=== PATIENT | female | born 1980 | race Caucasian/White ===

== ENCOUNTER 2016-11-21 16:13 | Emergency (ER) | payer OTHER ==
[~2016-11-21] VITALS: Ht 167.6 cm; Wt 67.6 kg
[~2016-11-21 16:13] MED LIST: BUPRTAB51 PO; DOXY100C76 PO; LEVO175T3 PO; OXYC1TAB3 PO
[2016-11-21 16:14] VITALS: TEMP 37.1; Ht 167.6 cm; Wt 67.6 kg
[2016-11-21] MEDS ORDERED: KETOROLAC TROMETHAMINE 60 MG/2 ML VIAL IM STA (16:33)
[2016-11-21] MEDS ORDERED: KETOROLAC TROMETHAMINE 30 MG/ML VIAL ONE (16:38)
[2016-11-21] MEDS ORDERED: QUET1TAB32 PO (16:39)
[2016-11-21 17:08] LABS: BASO % 0.3 %; BASO ABS # 0.03 K/uL (0-0.2); COMPLETE YES; EOS % 1.1 %; HEMATOCRIT 40.3 % (37-47); IG% 0.3 %; LYMPH % 28.3 %; LYMPH ABS # 2.88 K/uL (1.2-3.4); MEAN CELL VOLUME 89.6 fL (80-100); MEAN CORPUSCULAR HEMOGLOBIN 30.4 pg (25-34); MEAN PLATELET VOLUME 9.3 fL (7.4-10.4); MONO % 5.6 %; NEUT % 64.4 %; PLATELET COUNT 315 K/uL (130-400); WHITE BLOOD COUNT 10.17 K/uL (4.8-10.8)
[2016-11-21 17:29] LABS: BUN/CREATININE RATIO 9.5 (10-20); CALCIUM 8.9 mg/dl (8.5-10.1); POTASSIUM 3.6 mmol/L (3.5-5.1)
--- NOTE | 2016-11-21 17:30 | DIAGNOSTIC IMAGING REPORT ---
CT SCAN OF THE CERVICAL SPINE CLINICAL HISTORY: Neck pain and right cervical radiculopathy. COMPARISON STUDY: Radiograph of the cervical spine dated 02/24/2016. TECHNIQUE: CT scan of the cervical spine is performed from the skull base to the upper thoracic spine. Images are reviewed in the axial, sagittal, and coronal planes. IV contrast was not administered for this examination. CT DOSE: 234.34 mGy.cm FINDINGS: Skeletal structures: The skeletal structures are well mineralized. There is no evidence of fracture or subluxation involving the cervical spine. Vertebral body height and alignment are maintained. There is straightening of cervical lordosis with mild reversal centered at C4-C5. The odontoid process and lateral masses are intact. The atlantoaxial articulation is preserved. The spinous processes appear intact. Intervertebral discs: The disc spaces are well maintained. Posterior disc bulge is suggested at C5-C6. Central canal: Grossly patent. Soft tissues: The prevertebral and paraspinous soft tissues are within normal limits. The thyroid gland appears diminutive. Calvarium: The visualized calvarium at the skull base appears intact. Brain parenchyma: Partially visualized brain parenchyma the skull base is within normal limits. Sinuses and mastoids: The visualized paranasal sinuses are clear. The mastoid air cells are well pneumatized. Lung apices: Clear as visualized. IMPRESSION: 1. There is no evidence of fracture or subluxation involving the cervical spine. 2. Posterior disc bulge is suggested at C5-C6. Electronically signed by: Jh Norris M.D. 11/21/2016 5:27 PM Dictated Date/Time: 11/21/2016 5:25 PM
--- NOTE | 2016-11-21 18:40 | DIAGNOSTIC IMAGING REPORT ---
TWO VIEW CHEST CLINICAL HISTORY: Right-sided chest pain. FINDINGS: PA and lateral chest radiographs are compared to study dated 10/22/2016 and correlated with chest CT dated 10/20/2016. The cardiomediastinal silhouette is unremarkable. The lungs and pleural spaces are clear. There is no pneumothorax. The bony thorax appears intact. IMPRESSION: No active disease in the chest. Electronically signed by: Jh Norris M.D. 11/21/2016 6:38 PM Dictated Date/Time: 11/21/2016 6:37 PM
[2016-11-21] MEDS ORDERED: METHYLPREDNISOLONE 125 MG VIAL IV STA (18:57)
[2016-11-21] MEDS ORDERED: PRED50TA PO (19:16)
--- NOTE | 2016-11-21 19:21 | EMERGENCY ROOM VISIT NOTE ---
History Report prepared by Codiibhema: Ankita Martin Under the Supervision of: Dr. Deep Pepe D.O. First contact with patient: 16:17 Chief Complaint: OTHER COMPLAINT Stated Complaint: RT SIDE PAIN - SHOULDER DOWN THROUGH RIBS History of Present Illness The patient is a 36 year old female who presents to the Emergency Room with complaints of worsening right sided rib pain for the past several weeks. She rates her discomfort as a 7/10 and states the pain feels sharp, "like a pinched nerve". Moving her head worsens her pain. She reports she experienced pneumonia recently and tore muscles in both sides of her chest, near her ribs. She was treated with steroids for the pneumonia but denies any other recent steroid use. Recently, she has started experiencing right sided shoulder pain that also radiates into her rib area. She notes the fingers in her right hand will feel numb and tingly intermittently when the pain worsens when she turns her head to the right. The patient denies any history of cancer or IV drug use. The patient also denies any headache, change in vision, fevers, chest pain, shortness of breath, nausea, vomiting, diarrhea, pain with urination, and melena. 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 A total of 10 systems reviewed and were otherwise negative. Past Medical & Surgical Medical Problems: (1) Abdominal pain (2) Abdominal pain, left lower quadrant (3) Acute Pancreatitis, Unspecified (4) Contusion of hand, left (5) Hiatal hernia (6) Hypothyroidism (7) Hypothyroidism, Unspecified (8) Injury of right knee (9) Joint pain (10) Lower extremity edema (11) Major Depressive Disorder, Single Episode, Unspecified (12) Nicotine Dependence, Cigarettes, Uncomplicated (13) Ovarian cyst Surgical Problems: (1) History of appendectomy (2) History of back surgery Family History Cancer Diabetes mellitus FHx: gallbladder disease Heart disease Hypertension Kidney disease Kidney stones Lung disease Seizures Social History Smoking Status: Current Some Day Smoker Alcohol Use: none Drug Use: none Marital Status: in relationship Housing Status: lives with family Occupation Status: unemployed Current/Historical Medications Scheduled Bupropion (Wellbutrin-Xl), 300 MG PO DAILY Citalopram Hydrobromide (Celexa), 40 MG PO HS Levothyroxine Sodium (Levothyroxine Sodium), 175 MCG PO DAILY Prednisone (Prednisone), 50 MG PO DAILY Quetiapine Fumarate (Seroquel), 150 MG PO HS Scheduled PRN Albuterol (Proventil Hfa), 2 PUFFS INH Q4 PRN for SOB/Wheezing Allergies Coded Allergies: Fentanyl (Unverified Allergy, Severe, THROAT SWELLING, 10/20/16) Physical Exam Vital Signs Date Time Temp Pulse Resp B/P Pulse Ox O2 Delivery O2 Flow Rate FiO2 11/21/16 19:34 87 16 117/80 100 11/21/16 16:14 37.1 91 16 113/81 100 Room Air Physical Exam GENERAL: Patient is sitting up in bed, alert, disheveled appearing, well nourished, no distress, non-toxic EYE EXAM: normal conjunctiva OROPHARYNX: no exudate, no erythema, lips, buccal mucosa, and tongue normal and mucous membranes are moist NECK: Acute reproducible tenderness in the right paraspinal cervical region, tracking through the trapezius, into the shoulder. LUNGS: Clear to auscultation. Normal chest wall mechanics HEART: no murmurs, S1 normal and S2 normal CHEST: Acute reproducible tenderness on the right axilla. ABDOMEN: abdomen soft, non-tender, normo-active bowel sounds, no masses, no rebound or guarding. BACK: Back is symmetrical on inspection and there is no deformity, no midline tenderness, no CVA tenderness. SKIN: no rashes and no bruising UPPER EXTREMITIES: upper extremities are grossly normal. Flexion and extension of the shoulder, elbow, wrist and grasp 5/5, radial pulses 2/4, gross sensation intact, abduction of digits intact. LOWER EXTREMITIES: No pitting edema. NEURO EXAM: Normal sensorium, cranial nerves II-XII grossly intact, normal speech, no gross weakness of legs. Gross sensation intact. Medical Decision & Procedures ER Provider Diagnostic Interpretation: This CT scan was reviewed and interpreted by the radiologist and reviewed by myself. CT SCAN OF THE CERVICAL SPINE IMPRESSION: 1. There is no evidence of fracture or subluxation involving the cervical spine. 2. Posterior disc bulge is suggested at C5-C6. Electronically signed by: Jh Norris M.D. 11/21/2016 5:27 PM This X-Ray was reviewed and interpreted by myself and the radiologist. TWO VIEW CHEST IMPRESSION: No active disease in the chest. Electronically signed by: Jh Norris M.D. 11/21/2016 6:38 PM Laboratory Results 11/21/16 16:55 Red Blood Count 4.50, Mean Corpuscular Volume 89.6, Mean Corpuscular Hemoglobin 30.4, Mean Corpuscular Hemoglobin Concent 34.0, Mean Platelet Volume 9.3, Neutrophils (%) (Auto) 64.4, Lymphocytes (%) (Auto) 28.3, Monocytes (%) (Auto) 5.6, Eosinophils (%) (Auto) 1.1, Basophils (%) (Auto) 0.3, Neutrophils # (Auto) 6.55, Lymphocytes # (Auto) 2.88, Monocytes # (Auto) 0.57, Eosinophils # (Auto) 0.11, Basophils # (Auto) 0.03 11/21/16 16:55 Test 11/21/16 16:55 White Blood Count 10.17 K/uL (4.8-10.8) Red Blood Count 4.50 M/uL (4.2-5.4) Hemoglobin 13.7 g/dL (12.0-16.0) Hematocrit 40.3 % (37-47) Mean Corpuscular Volume 89.6 fL (80-100) Mean Corpuscular Hemoglobin 30.4 pg (25-34) Mean Corpuscular Hemoglobin Concent 34.0 g/dl (32-36) Platelet Count 315 K/uL (130-400) Mean Platelet Volume 9.3 fL (7.4-10.4) Neutrophils (%) (Auto) 64.4 % Lymphocytes (%) (Auto) 28.3 % Monocytes (%) (Auto) 5.6 % Eosinophils (%) (Auto) 1.1 % Basophils (%) (Auto) 0.3 % Neutrophils # (Auto) 6.55 K/uL (1.4-6.5) Lymphocytes # (Auto) 2.88 K/uL (1.2-3.4) Monocytes # (Auto) 0.57 K/uL (0.11-0.59) Eosinophils # (Auto) 0.11 K/uL (0-0.5) Basophils # (Auto) 0.03 K/uL (0-0.2) RDW Standard Deviation 47.0 fL (36.4-46.3) RDW Coefficient of Variation 14.3 % (11.5-14.5) Immature Granulocyte % (Auto) 0.3 % Immature Granulocyte # (Auto) 0.03 K/uL (0.00-0.02) D-Dimer 330 ug/L FEU (0-500) Anion Gap 8.0 mmol/L (3-11) Est Creatinine Clear Calc Drug Dose 72.8 ml/min Estimated GFR () 83.9 Estimated GFR (Non- 72.4 BUN/Creatinine Ratio 9.5 (10-20) Calcium Level 8.9 mg/dl (8.5-10.1) Laboratory results per my review. Medications Administered Medications (Trade) Dose Ordered Sig/Lulu Route Start Time Stop Time Status Last Admin Dose Admin Ketorolac Tromethamine (Toradol Inj) 60 mg NOW STAT IM 11/21/16 16:33 11/21/16 16:36 DC 11/21/16 17:41 60 MG Prednisone (PredniSONE TAB) 10 mg STK-MED ONCE .ROUTE 11/21/16 19:10 11/21/16 19:11 DC 11/21/16 19:13 10 MG Prednisone (PredniSONE TAB) 40 mg STK-MED ONCE .ROUTE 11/21/16 19:10 11/21/16 19:11 DC 11/21/16 19:13 40 MG ED Course ED COURSE: Vital signs were reviewed and showed normal vital signs. The patients medical record was reviewed The above diagnostic studies were performed and reviewed. ED treatments and interventions as stated above. 1621: The patient was evaluated in room A4. A complete history and physical examination was performed. 1633: Toradol 60 mg IM. 1744: I reevaluated the patient. She is on the way to X-Ray. 1856: Solu-Medrol 125 mg IV. 1909: Prednisone 50 mg PO. 1914: Upon reevaluation, the patient is feeling much better. I discussed my findings with the patient and she understands and agrees with the treatment plan. Based on the patients age, coexisting illnesses, exam and lab findings the decision to treat as an outpatient was made. The patient remained stable while under my care. The patient appeared well at the time of discharge. Medical Decision Etiologies such as fracture, dislocation, neurovascular compromise, compartment syndrome, soft tissue injury, as well as others were entertained. Patient is a 36-year-old female who presents the ER for right sided neck pain that radiates down right arm associated with intermittent tingling in her digits. She has no numbness now. She notes that this is been present for the past month. She does also have right-sided chest wall tenderness. Patient has no other complaints at this time. Denies chest pain or shortness of breath. D- dimer was negative. CBC and BMP were unremarkable. Chest x-ray shows no obvious fractures or infiltrate. CT of her neck shows likely disc protrusion but no fracture. Based on her symptoms I do believe that this is a cervical radiculopathy. She did have improvement with Toradol which was given IM. She is also given oral steroids and discharged follow up with her primary care doctor. Stressed the importance that if she has any weakness or worsening numbness that should return to the ER. Discussed with Pt concerning signs and symptoms to watch out for. Pt was instructed to follow up with their PCP and discussed with the patient their option to return to the ED at anytime for persistent or worsening symptoms. The appropriate anticipatory guidance and out- patient management, including indications for return to the emergency department , were explained at length to the patient and understood. Impression Primary Impression: Cervical radiculopathy Additional Impression: Right-sided chest wall pain Scribe Attestation The scribe's documentation has been prepared under my direction and personally reviewed by me in its entirety. I confirm that the note above accurately reflects all work, treatment, procedures, and medical decision making performed by me. Departure Information Dispostion Home / Self-Care Prescriptions Prednisone (Prednisone) 50 Mg Tab 50 MG PO DAILY for 5 Days, #5 TAB Prov: Deep Pepe, 11/21/16 Referrals No Doctor, Assigned (PCP) Patient Instructions ED Cervical Radiculopathy, My [facility] Additional Instructions Please follow up with your primary care doctor with in the next 24 hours. Any worsening of your symptoms, please return to the ED immediately. This includes fevers greater than 100.4, inability to turn her neck, weakness in her arm, complete numbness in the arm, or any other concerning signs or symptoms from your standpoint. Again you must follow with your primary care doctor for the cervical radiculopathy is likely causing the pain shooting down your right arm. Please take the steroids as prescribed. Please take Motrin Tylenol examination with steroids for pain. Problem Qualifiers
[2016-11-21 19:34] VITALS: BP 117/80; PULSE 87; O2SAT 100
[2016-11-21] MEDS ORDERED: ALBUAER INH (23:15)
[2016-11-21] MEDS ORDERED: CITA40TA12 PO (23:15)
== END 2016-11-21 19:35 | disposition home or self-care (01) ==
LOC: C.EDB 16:13 → C.EDA 19:35
DX: M54.12 Radiculopathy, cervical region (principal); R07.81 Pleurodynia; E03.9 Hypothyroidism, unspecified; F32.9 Major depressive disorder, single episode, unspecified; N83.209 Unspecified ovarian cyst, unspecified side; K86.1 Other chronic pancreatitis; F17.210 Nicotine dependence, cigarettes, uncomplicated; Z87.828 Personal history of other (healed) physical injury and trauma; Z98.890 Other specified postprocedural states; Z79.899 Other long term (current) drug therapy; Z88.8 Allergy status to other drugs, medicaments and biological substances; Z80.9 Family history of malignant neoplasm, unspecified; Z83.3 Family history of diabetes mellitus; Z82.49 Family history of ischemic heart disease and other diseases of the circulatory system; Z84.1 Family history of disorders of kidney and ureter; Z82.0 Family history of epilepsy and other diseases of the nervous system

== ENCOUNTER 2016-12-11 18:00 | Emergency (ER) | payer OTHER ==
[~2016-12-11] VITALS: Ht 167.6 cm; Wt 68.4 kg
[~2016-12-11 18:00] MED LIST changes: +ALBUAER INH; +CITA40TA12 PO; -DOXY100C76 PO; -OXYC1TAB3 PO; +QUET1TAB32 PO
[2016-12-11 18:08] VITALS: TEMP 36.8; Ht 167.6 cm; Wt 68.4 kg
--- NOTE | 2016-12-11 18:36 | DIAGNOSTIC IMAGING REPORT ---
RIGHT HAND 3 VIEWS HISTORY: Right fifth finger pain. COMPARISON: None. FINDINGS: There is a cortical plate and screws within the distal ulna. Soft tissue swelling at the distal right fifth finger. There is a fracture at the dorsal base of the distal phalanx of the right fifth finger which demonstrates 1 mm of distraction. No dislocation. Soft tissues are unremarkable. No radiopaque foreign bodies. IMPRESSION: Small slightly distracted fracture at the dorsal base of the distal phalanx of the right fifth finger. Electronically signed by: Johny Alonzo M.D. 12/11/2016 6:35 PM Dictated Date/Time: 12/11/2016 6:34 PM
[2016-12-11] MEDS ORDERED: HYDR-5688 PO (18:57)
[2016-12-11 19:21] VITALS: BP 107/75; PULSE 96; O2SAT 99
--- NOTE | 2016-12-12 14:53 | EMERGENCY ROOM VISIT NOTE ---
ED Visit Note First contact with patient: 18:13 Chief Complaint: Right little finger pain. History of Present Illness: Ms. Richter is a 36-year-old white female who ambulates into the ED complaining of right little finger pain at the DIP joint. Historically patient reports she initially injured it approximately 2 weeks ago. She was seen at [facility] ED and was told she had a fracture of the distal phalanx but was told the fracture appeared old. She was placed in the splint and given narcotics for pain control. She reports she stayed in the splint for approximately one week and was feeling better and took her splint off. She reports last night she was lifting up a laundry basket and reinjured her finger when somehow all the weight of the basket balanced on the little finger. Since that time she was noted increasing swelling over the DIP joint and increasing pain. Currently she describes her pain as a combination of sharp and throbbing. She places her discomfort over the DIP joint primarily over the posterior aspect. She rates her discomfort 6/10. Her pain is nonradiating. Her pain worsens with extension of the DIP joint, flexion of the DIP joint and palpation. She has not identified any alleviating factors related to the pain. She reports she has not taken a medication for pain prior to arrival at the hospital. Associated with her pain she reports paresthesias of the distal phalanx of the finger. Review of Systems: As noted above in history of present illness. Past Medical History: Graves' disease, asthma, bronchitis, pneumonia, status post unspecified back surgery, hernia repair, appendectomy, section and unspecified right arm surgery. Current Medications: Celexa, albuterol, Seroquel, Wellbutrin, levothyroxine. Allergies to Medications: Fentanyl. Social History: Patient is not employed; she feels safe in her home environment ; she admits to tobacco use and denies alcohol use. Physical Examination: Vital Signs: Date Time Temp Pulse Resp B/P Pulse Ox O2 Delivery O2 Flow Rate FiO2 12/11/16 19:21 96 16 107/75 99 12/11/16 18:08 36.8 94 17 109/75 97 Room Air GENERAL: 36-year-old female in moderate distress due to pain, nontoxic-appearing , afebrile and hemodynamically stable. NEUROLOGICAL: Awake, alert and oriented to person, place and time. Answering questions appropriately and following commands. SKIN: Warm, dry and pink. No soft tissue trauma noted. RIGHT HAND: No gross bony deformity. No tenderness over the metacarpals, carpals, MCP and PIP joints. Over the fifth MCP joint patient has mild erythema surrounding the joint and edema. There is moderate tenderness throughout the joint. I do not appreciate any bony deformity or crepitus. She has difficulty going from a flexed to a completely extended position at the DIP joint due to pain and swelling. She was not able to distinguish light sensations through the dermatomes of the distal phalanx. Skin was warm and pink and capillary refill was brisk. She did have full range of motion in flexion and extension of the PIP and MCP joint of the little finger. ED Course: Patient is assessed as noted above. Right Hand X-Rays: Were read by myself and the radiologist showing a small slightly displaced fracture at the dorsal base of the distal phalanx of the little finger. Patient was offered medications and refused. Patient was placed in a metal finger splint. Patient was educated about tonight's findings and instructed on her treatment plan; she verbalizes understanding and agreement with this plan. Clinical Impression: Fractured right hand fifth distal phalanx. Questionable tendon injury. Disposition: Patient discharged home in stable condition accompanied by her mother; prior to departure she was reassessed and subjectively reported she was feeling worse. Plan: Comfort measures including rest, ice, elevation, splint use and a sliding pain scale of ibuprofen, acetaminophen and [place] were discussed with the patient; appropriate narcotic prescriptions were discussed with the patient. Patient was encouraged to follow-up at orthopedics for definitive care and treatment. Patient was encouraged return ED for worsening/uncontrolled pain, uncontrolled swelling or any new/concerning symptoms.
== END 2016-12-11 19:22 | disposition home or self-care (01) ==
LOC: C.EDB 18:01 → C.EDD 19:22
DX: S62.636A Displaced fracture of distal phalanx of right little finger, initial encounter for closed fracture (principal); X50.0XXA Overexertion from strenuous movement or load, initial encounter; Y93.E2 Activity, laundry; E05.00 Thyrotoxicosis with diffuse goiter without thyrotoxic crisis or storm; J45.909 Unspecified asthma, uncomplicated; F17.200 Nicotine dependence, unspecified, uncomplicated

== ENCOUNTER 2017-01-15 10:48 | Emergency (ER) | payer OTHER ==
[~2017-01-15] VITALS: Ht 167.6 cm; Wt 66.8 kg
[~2017-01-15 10:48] MED LIST changes: +HYDR-5688 PO
[2017-01-15 10:53] VITALS: TEMP 36.7; Ht 167.6 cm; Wt 66.8 kg
[2017-01-15] MEDS ORDERED: SODIUM CHLORIDE 0.9% 1000ML 1,000 ML IV STA (11:34)
--- NOTE | 2017-01-15 11:43 | EMERGENCY ROOM VISIT NOTE ---
History First contact with patient: 11:15 Chief Complaint: RECTAL BLEEDING Stated Complaint: RECTAL BLEEDING Nursing Triage Summary: bright red rectal bleeding started on thursday. I have been passing clots. having rectal pain. hx of hemorrhoids History of Present Illness The patient is a 36 year old female who presents to the Emergency Room via private vehicle accompanied by mother with complaints of "rectal bleeding". The patient states that for the past year she has been experiencing rectal bleeding, with and without bowel movements. She notes that this occurred around the same time as her . She states that she also had a colonoscopy around 1.5 years ago and was normal. She states that this was performed in [place]. She notes that since that time she has had continued rectal bleeding, which has been off and on as well as diarrhea. She also notes that recently she began with a fullness sensation in the rectum, and notes that it feels as if someone is inserting a large object into that region. She also has lower abdominal cramping when trying to pass stool. She notes that she has a history of anemia. She was also told that she has "cancer cells and blood" and she was to see a lead military analyst. She was referred to them by her family doctor, Dr. Granado of [place]. She notes that the rectal bleeding will often be large amounts, with clots/chunks in the toilet bowl. She also notes that when she sits to urinate she will also passed blood from the rectum region. She notes that when she experiences a bowel movement she becomes sweaty. She also vomited twice Thursday night, in the Thursday but has not had any recently. She denies any fevers or chills. She denies any history of Crohn's or ulcers colitis. She does have an abdominal history of and appendectomy. She also has a history of external hemorrhoids. She notes that she has had these for quite some time, and this feels different. At this current time she rates her pain as minimal. Review of Systems A complete 10-point Review of Systems was discussed with the patient, with pertinent positives and negatives listed in the History of Present Illness. All remaining Review of Systems questions can be considered negative unless otherwise specified. Past Medical/Surgical History Medical Problems: (1) Abdominal pain (2) Abdominal pain, left lower quadrant (3) Acute Pancreatitis, Unspecified (4) Contusion of hand, left (5) Hiatal hernia (6) Hypothyroidism (7) Hypothyroidism, Unspecified (8) Injury of right knee (9) Joint pain (10) Lower extremity edema (11) Major Depressive Disorder, Single Episode, Unspecified (12) Nicotine Dependence, Cigarettes, Uncomplicated (13) Ovarian cyst Surgical Problems: (1) History of appendectomy (2) History of back surgery Family History Cancer Diabetes mellitus FHx: gallbladder disease Heart disease Hypertension Kidney disease Kidney stones Lung disease Seizures Social History Smoking Status: Current Every Day Smoker Alcohol Use: none Drug Use: none Marital Status: in relationship Housing Status: lives with family Occupation Status: unemployed Current/Historical Medications Scheduled Bupropion (Wellbutrin-Xl), 300 MG PO DAILY Citalopram Hydrobromide (Celexa), 40 MG PO HS Hydrocortisone Acetate (Rectal (Anusol-Hc), 1 SUPP OK BID Levothyroxine Sodium (Levothyroxine Sodium), 175 MCG PO DAILY Quetiapine Fumarate (Seroquel), 150 MG PO HS Scheduled PRN Albuterol (Proventil Hfa), 2 PUFFS INH Q4 PRN for SOB/Wheezing Oxycodone Ir (Roxicodone Ir), 1-2 TAB PO Q4H PRN for Pain Allergies Coded Allergies: Fentanyl (Unverified Allergy, Severe, THROAT SWELLING, 01/15/17) Physical Exam Vital Signs Date Time Temp Pulse Resp B/P Pulse Ox O2 Delivery O2 Flow Rate FiO2 01/15/17 16:23 77 16 111/59 96 Room Air 01/15/17 13:29 78 20 108/68 100 Room Air 01/15/17 10:53 36.7 98 18 107/65 97 Room Air Physical Exam VITAL SIGNS - Vital signs and nursing notes were reviewed. Patient is afebrile , normotensive, non-tachycardic and is saturating well on room air 97%. GENERAL -36-year-old female appearing her stated age who is in no acute distress. Patient is nontoxic in appearance. Communicates well with provider and answers questions appropriately. SKIN - Without rashes. No petechial rashes. HEAD - NC/AT. EYES - Sclera anicteric. Palpebral conjunctiva pink and moist with no injection noted. EARS - No deformities of external structures noted on gross examination bilaterally. NOSE - Midline and without cyanosis. No epistaxis or purulent drainage noted. NECK - Neck with FROM. Supple to palpation. No lymphadenopathy noted. No nuchal rigidity. No evidence of meningitis or encephalitis. LUNGS - Chest wall symmetric without accessory muscle use, intercostals retractions, or central cyanosis. Normal vesicular breath sounds CTA B/L. No wheezes, rales, or rhonchi appreciated. CARDIAC - RRR with S1/S2. No murmur, rubs, or gallops appreciated. ABDOMEN - Abdominal contour without pulsations or visible masses. BS normoactive all four quadrants. There is minimal generalized abdominal tenderness, more pronounced in the lower quadrants. No palpable masses, hepatosplenomegaly, or ascites noted. EXTREMITIES - No clubbing or peripheral cyanosis. No pretibial edema present. + 5/5 strength noted in UE/LE bilaterally. NEUROLOGIC - Cranial nerves II through XII grossly intact. Sensory intact to light touch throughout. PSYCH - Pt is very pleasant and interacts well with examiner. RECTAL: With patient consent, and female precipitator which was the patient's nurse , there are multiple external hemorrhoids noted, with out any evidence of bright red blood. Rectal exam was difficult for the patient as she was experiencing pain, and this was stopped. It was retried with copious amounts of lubricant, with same result, patient tolerated well. External hemorrhoids noted without evidence of internal abnormalities. Medical Decision & Procedures ER Provider Diagnostic Interpretation: ABDOMEN AND PELVIS CT WITH IV AND ORAL CONTRAST CT DOSE: 434.13 mGy.cm HISTORY: Pain Lower abdominal pain with defecation, blood in stool TECHNIQUE: Multiaxial CT images of the abdomen and pelvis were performed following the use of intravenous and oral contrast. COMPARISON STUDY: None. FINDINGS: Minimal basilar dependent atelectasis. Bowel pattern is nonobstructive. Small bilateral ovarian follicular cyst. Bladder is midline. Stable postoperative changes of the low lumbar spine. IMPRESSION: No acute process of the abdomen or pelvis. Small bilateral ovarian follicular cysts Electronically signed by: Jacob Contreras M.D. 01/15/2017 2:59 PM Dictated Date/Time: 01/15/2017 2:54 PM Laboratory Results 01/15/17 11:10 Red Blood Count 4.73, Mean Corpuscular Volume 90.3, Mean Corpuscular Hemoglobin 30.4, Mean Corpuscular Hemoglobin Concent 33.7, Mean Platelet Volume 9.4, Neutrophils (%) (Auto) 42.4, Lymphocytes (%) (Auto) 47.3, Monocytes (%) (Auto) 7.4, Eosinophils (%) (Auto) 1.9, Basophils (%) (Auto) 0.7, Neutrophils # (Auto) 3.07, Lymphocytes # (Auto) 3.43, Monocytes # (Auto) 0.54, Eosinophils # (Auto) 0.14, Basophils # (Auto) 0.05 01/15/17 11:10 Test 01/15/17 11:10 01/15/17 11:34 01/15/17 12:35 01/15/17 13:35 White Blood Count 7.25 K/uL (4.8-10.8) Red Blood Count 4.73 M/uL (4.2-5.4) Hemoglobin 14.4 g/dL (12.0-16.0) Hematocrit 42.7 % (37-47) Mean Corpuscular Volume 90.3 fL (80-100) Mean Corpuscular Hemoglobin 30.4 pg (25-34) Mean Corpuscular Hemoglobin Concent 33.7 g/dl (32-36) Platelet Count 385 K/uL (130-400) Mean Platelet Volume 9.4 fL (7.4-10.4) Neutrophils (%) (Auto) 42.4 % Lymphocytes (%) (Auto) 47.3 % Monocytes (%) (Auto) 7.4 % Eosinophils (%) (Auto) 1.9 % Basophils (%) (Auto) 0.7 % Neutrophils # (Auto) 3.07 K/uL (1.4-6.5) Lymphocytes # (Auto) 3.43 K/uL (1.2-3.4) Monocytes # (Auto) 0.54 K/uL (0.11-0.59) Eosinophils # (Auto) 0.14 K/uL (0-0.5) Basophils # (Auto) 0.05 K/uL (0-0.2) RDW Standard Deviation 44.5 fL (36.4-46.3) RDW Coefficient of Variation 13.3 % (11.5-14.5) Immature Granulocyte % (Auto) 0.3 % Immature Granulocyte # (Auto) 0.02 K/uL (0.00-0.02) Anion Gap 12.0 mmol/L (3-11) Est Creatinine Clear Calc Drug Dose 72.8 ml/min Estimated GFR () 83.9 Estimated GFR (Non- 72.4 BUN/Creatinine Ratio 7.3 (10-20) Calcium Level 8.9 mg/dl (8.5-10.1) Magnesium Level 2.5 mg/dl (1.8-2.4) Total Bilirubin 0.2 mg/dl (0.2-1) Aspartate Amino Transf (AST/SGOT) 18 U/L (15-37) Alanine Aminotransferase (ALT/SGPT) 28 U/L (12-78) Alkaline Phosphatase 107 U/L (45-117) Total Protein 7.7 gm/dl (6.4-8.2) Albumin 3.5 gm/dl (3.4-5.0) Globulin 4.2 gm/dl (2.5-4.0) Albumin/Globulin Ratio 0.8 (0.9-2) Thyroid Stimulating Hormone (TSH) 0.160 uIu/ml (0.300-4.500) Prothrombin Time 10.0 SECONDS (9.0-12.0) Prothromb Time International Ratio 0.9 (0.9-1.1) Activated Partial Thromboplast Time 34.8 SECONDS (21.0-31.0) Partial Thromboplastin Ratio 1.3 Urine Color YELLOW Urine Appearance CLEAR (CLEAR) Urine pH 8.0 (4.5-7.5) Urine Specific [place] 1.007 (1.000-1.030) Urine Protein NEG (NEG) Urine Glucose (UA) NEG (NEG) Urine Ketones NEG (NEG) Urine Occult Blood NEG (NEG) Urine Nitrite NEG (NEG) Urine Bilirubin NEG (NEG) Urine Urobilinogen NEG (NEG) Urine Leukocyte Esterase NEG (NEG) Medications Administered Medications (Trade) Dose Ordered Sig/Lulu Route Start Time Stop Time Status Last Admin Dose Admin Sodium Chloride (Nss 1000ml) 1,000 ml @ 999 mls/hr Q1H1M STAT IV 01/15/17 11:34 01/15/17 12:34 DC 01/15/17 12:05 999 MLS/HR Morphine Sulfate (MoRPHine SULFATE INJ) 4 mg NOW STAT IV 01/15/17 12:41 01/15/17 12:42 DC 01/15/17 12:46 4 MG Ondansetron HCl (Zofran Inj) 4 mg NOW STAT IV 01/15/17 12:41 01/15/17 12:42 DC 01/15/17 12:45 4 MG Medical Decision Patient was seen and evaluated as above. After obtaining a thorough history and physical examination the above workup was initiated. IV access was obtained. There was concern for intra-abdominal process as well as acute abdominal process. CT scan of the abdomen was ordered after discussing benefits versus risk with the patient. Her CBC did not reveal any leukocytosis or anemia. Coagulation studies revealed PTT elevated at 34.8, CMP reveals carbon dioxide elevated at 20, anion gap of 12, magnesium at 2.5, TSH at .160. Urine negative for evidence of infection. Urine negative for . CT of abdomen and pelvis essentially unremarkable. Rectal exam does reveal numerous external hemorrhoids. I do suspect the patient is likely experiencing pain secondary to this. She also has a potential diagnosis of IBS by her family doctor. Throughout her stay here she was given morphine and Zofran. The morphine was also repeated secondary to her level of pain. She was nontoxic in appearance. The patient will be discharged on a short term supply of OxyIR for her pain. She was educated upon the findings of today's lab work. She does appear to be ready for discharge. She is to follow-up with a soda maker as well as her family doctor. I do believe a colonoscopy near future be benefit. She was educated upon worrisome symptoms which to return, hypertension is pressured, and was discharged home in good condition. I suspect she is experiencing pain and rectal bleeding secondary to extensive external hemorrhoids. She will be treated with Anusol HC. As well as a short term supply pain medication. In evaluation treatment this patient following differential diagnoses were entertained: External hemorrhoids, internal hemorrhoids, colon cancer, ulcerative colitis, Crohn's, diverticulitis, mesenteric ischemia, IBS, among others. Impression Primary Impression: Rectal bleeding Additional Impression: Abdominal pain Departure Information Dispostion Home / Self-Care Condition GOOD Prescriptions Hydrocortisone Acetate (Rectal (ANUSOL-HC) 25 Mg Sup 1 SUPP OK BID for 7 Days, #14 SUPP Prov: Cruzito Fisher, MING 01/15/17 Oxycodone Ir (Roxicodone Ir) 5 Mg Tab 1-2 TAB PO Q4H Y for Pain, #15 TAB For Initial Treatment Prov: Cruzito Fisher PA-C 01/15/17 Referrals Abrahan Granado PA-C (PCP) Aggie Crowe M.D. Patient Instructions My [facility] Additional Instructions You have been treated in the Emergency Department your Abdominal Pain. Laboratory results and imaging studies have ruled out any emergent causes for your abdominal pain which would warrant admission or surgery. You've been prescribed suppositories which are to be used twice daily for 1 week for your hemorrhoids. You have been prescribed OxyIR to be used for pain control. This is a narcotic medication. You cannot drive or consume alcohol while on this medicine. This medicine should only be used for pain that cannot be controlled with over-the- counter pain medicines. For pain control, you can use the following [id number] medicines (if >12 yo): - Regular strength (325mg/tab) Tylenol (acetaminophen) 2 tabs every 4-6 hours as needed. Do not exceed 12 tablets in a 24 hour period. Avoid taking more than 4 grams (4000 mg) of Tylenol per day. This includes any other sources of acetaminophen you may take on a regular basis. Drink plenty of water and stay well hydrated. As with any trip to the Emergency Department, you should follow-up with your Primary Care Provider from today's visit. Return to the emergency department if your symptoms persist despite treatment plan outlined above or if the following symptoms occur: increased fevers, chills , worsening nausea/vomiting, blood in your stool or urine. Please call your family doctor, and the GI specialists listed above first thing tomorrow morning to schedule follow-up regarding today's visit. (Dr. Crowe) Problem Qualifiers Additional Impression: Abdominal pain Abdominal location: lower abdomen, unspecified Qualified Codes: R10.30 - Lower abdominal pain, unspecified
[2017-01-15] MEDS ORDERED: OPTIRAY 320 IV PRN (11:45)
[2017-01-15 11:51] LABS: BASO % 0.7 %; BASO ABS # 0.05 K/uL (0-0.2); COMPLETE YES; EOS % 1.9 %; HEMATOCRIT 42.7 % (37-47); IG% 0.3 %; LYMPH % 47.3 %; LYMPH ABS # 3.43 K/uL (1.2-3.4); MEAN CELL VOLUME 90.3 fL (80-100); MEAN CORPUSCULAR HEMOGLOBIN 30.4 pg (25-34); MEAN CORPUSCULAR HGB CONC 33.7 g/dl (32-36); MEAN PLATELET VOLUME 9.4 fL (7.4-10.4); MONO % 7.4 %; NEUT % 42.4 %; PLATELET COUNT 385 K/uL (130-400); RED BLOOD COUNT 4.73 M/uL (4.2-5.4); WHITE BLOOD COUNT 7.25 K/uL (4.8-10.8)
[2017-01-15 12:10] LABS: BUN/CREATININE RATIO 7.3 (10-20); CALCIUM 8.9 mg/dl (8.5-10.1); MAGNESIUM 2.5 mg/dl (1.8-2.4); POTASSIUM 3.9 mmol/L (3.5-5.1)
[2017-01-15 12:12] LABS: ALB/GLOB RATIO 0.8 (0.9-2)
[2017-01-15] MEDS ORDERED: ONDANSETRON INJ 2 MG/ML 2 ML VIAL IV STA (12:41)
[2017-01-15] MEDS ORDERED: MoRPHine SULFATE 4 MG/ML 1 ML CARP\\VIAL IV STA (12:41)
[2017-01-15 13:00] LABS: INR 0.9 (0.9-1.1); PARTIAL THROMBOPLASTIN RATIO 1.3
[2017-01-15 13:52] LABS: URINE APPEARANCE CLEAR (CLEAR); URINE BILIRUBIN NEG (NEG); URINE COLOR YELLOW; URINE NITRITE NEG (NEG); URINE SPECIFIC GRAVITY 1.007 (1.000-1.030); UROBILINOGEN NEG (NEG); ZZUR CULT IF INDIC CLEAN CATCH NO
[2017-01-15 13:55] LABS: MANUAL MICROSCOPIC REQUIRED? NO; REVIEW REQ? NO
--- NOTE | 2017-01-15 15:00 | DIAGNOSTIC IMAGING REPORT ---
ABDOMEN AND PELVIS CT WITH IV AND ORAL CONTRAST CT DOSE: 434.13 mGy.cm HISTORY: Pain Lower abdominal pain with defecation, blood in stool TECHNIQUE: Multiaxial CT images of the abdomen and pelvis were performed following the use of intravenous and oral contrast. COMPARISON STUDY: None. FINDINGS: Minimal basilar dependent atelectasis. Bowel pattern is nonobstructive. Small bilateral ovarian follicular cyst. Bladder is midline. Stable postoperative changes of the low lumbar spine. IMPRESSION: No acute process of the abdomen or pelvis. Small bilateral ovarian follicular cysts Electronically signed by: Jacob Contreras M.D. 01/15/2017 2:59 PM Dictated Date/Time: 01/15/2017 2:54 PM
[2017-01-15] MEDS ORDERED: HYDR25SU20 PR (16:13)
[2017-01-15] MEDS ORDERED: OXYC1TAB3 PO (16:13)
[2017-01-15 16:23] VITALS: BP 111/59; PULSE 77; O2SAT 96
== END 2017-01-15 16:25 | disposition home or self-care (01) ==
LOC: C.EDB 10:52 → C.EDC 16:25
DX: K62.5 Hemorrhage of anus and rectum (principal); R10.30 Lower abdominal pain, unspecified; E03.9 Hypothyroidism, unspecified; Z83.3 Family history of diabetes mellitus; Z82.49 Family history of ischemic heart disease and other diseases of the circulatory system; Z82.0 Family history of epilepsy and other diseases of the nervous system; F17.200 Nicotine dependence, unspecified, uncomplicated

== ENCOUNTER 2017-02-24 21:31 | Emergency (ER) | payer OTHER ==
[~2017-02-24] VITALS: Ht 167.6 cm; Wt 70.1 kg
[~2017-02-24 21:31] MED LIST changes: -HYDR-5688 PO; +OXYC1TAB3 PO
[2017-02-24 21:34] VITALS: TEMP 36.8; Ht 167.6 cm; Wt 70.1 kg
[2017-02-24 22:33] LABS: URINE APPEARANCE TURBID (CLEAR); URINE BILIRUBIN NEG (NEG); URINE COLOR ORANGE; URINE EPITHELIAL CELL AUTO >30 /lpf (0-5); URINE NITRITE NEG (NEG); UROBILINOGEN NEG (NEG); ZZUR CULT IF INDIC CLEAN CATCH YES
[2017-02-24 22:35] LABS: BASO % 0.3 %; BASO ABS # 0.02 K/uL (0-0.2); COMPLETE YES; EOS % 2.1 %; IG% 0.3 %; LYMPH ABS # 3.13 K/uL (1.2-3.4); MEAN CORPUSCULAR HEMOGLOBIN 31.6 pg (25-34); MEAN CORPUSCULAR HGB CONC 33.6 g/dl (32-36); MEAN PLATELET VOLUME 8.8 fL (7.4-10.4); MONO % 4.7 %; NEUT % 51.6 %; PLATELET COUNT 342 K/uL (130-400); RED BLOOD COUNT 4.15 M/uL (4.2-5.4); WHITE BLOOD COUNT 7.63 K/uL (4.8-10.8)
[2017-02-24 22:36] LABS: MANUAL MICROSCOPIC REQUIRED? NO; REVIEW REQ? NO
[2017-02-24 22:46] LABS: INR 0.9 (0.9-1.1); PARTIAL THROMBOPLASTIN RATIO 1.1; PROTHROMBIN TIME (PATIENT) 9.7 SECONDS (9.0-12.0)
[2017-02-24 22:51] LABS: BUN/CREATININE RATIO 7.1 (10-20); CREATININE 1.1 mg/dl (0.60-1.20); MAGNESIUM 2.3 mg/dl (1.8-2.4); POTASSIUM 3.7 mmol/L (3.5-5.1)
[2017-02-24 22:54] LABS: ALB/GLOB RATIO 0.9 (0.9-2)
--- NOTE | 2017-02-24 22:58 | DIAGNOSTIC IMAGING REPORT ---
CT SCAN OF THE BRAIN WITHOUT IV CONTRAST CLINICAL HISTORY: Fall. COMPARISON STUDY: No priors. TECHNIQUE: Unenhanced axial CT scan of the brain is performed from the vertex to the skull base. Automated dose control exposure was utilized. FINDINGS: Brain parenchyma: The brain parenchyma is normal in appearance. There is no hemorrhage, mass effect, or evidence of acute territorial ischemia by CT criteria. Dunbar-white matter is preserved. No extra-axial fluid collection is seen. Ventricles, sulci, cisterns: Normal in configuration. Intracranial vasculature: The visualized intracranial vasculature at the skull base is normal in appearance. Calvarium: There is no depressed calvarial fracture. Sinuses and mastoids: The visualized paranasal sinuses are clear. The mastoid air cells are well pneumatized. Orbits: The bony orbits are grossly intact. IMPRESSION: No acute intracranial abnormality. Electronically signed by: Jh Norris M.D. 02/24/2017 10:56 PM Dictated Date/Time: 02/24/2017 10:54 PM
[2017-02-24 22:59] LABS: CALCIUM 8.4 mg/dl (8.5-10.1)
--- NOTE | 2017-02-24 23:01 | DIAGNOSTIC IMAGING REPORT ---
CT SCAN OF THE CERVICAL SPINE CLINICAL HISTORY: Fall. Neck pain. COMPARISON STUDY: CT scan of cervical spine dated 11/21/2016. TECHNIQUE: CT scan of the cervical spine is performed from the skull base to the upper thoracic spine. Images are reviewed in the axial, sagittal, and coronal planes. IV contrast was not administered for this examination. CT DOSE: 859.44 mGy.cm FINDINGS: Skeletal structures: The skeletal structures are well mineralized. There is no evidence of fracture or subluxation involving the cervical spine. Vertebral body height and alignment are maintained. There is mild straightening of the cervical lordosis. The odontoid process and lateral masses are intact. The atlantoaxial articulation is preserved. The spinous processes appear intact. Intervertebral discs: The disc spaces are well maintained. Posterior disc bulge is again suggested at C5-C6. Central canal: Widely patent. Soft tissues: The prevertebral and paraspinous soft tissues are within normal limits. Calvarium: The visualized calvarium at the skull base appears intact. Brain parenchyma: Partially visualized brain parenchyma the skull base is within normal limits. Sinuses and mastoids: The visualized paranasal sinuses are clear. The mastoid air cells are well pneumatized. Lung apices: Tiny blebs are noted at the right apex. Lung parenchyma is otherwise clear as visualized. IMPRESSION: There is no evidence of fracture or subluxation involving the cervical spine. Electronically signed by: Jh Norris M.D. 02/24/2017 10:59 PM Dictated Date/Time: 02/24/2017 10:56 PM
[2017-02-24 23:08] LABS: BENZODIAZEPINE, URINE NEG (NEG); COCAINE,URINE NEG (NEG); PHENCYCLIDINE, URINE NEG (NEG)
--- NOTE | 2017-02-24 23:12 | DIAGNOSTIC IMAGING REPORT ---
CT SCAN OF THE LUMBAR SPINE WITHOUT IV CONTRAST CLINICAL HISTORY: Fall with low back pain. COMPARISON STUDY: Progressive lumbar spine dated 02/24/2016. TECHNIQUE: CT scan of the lumbar spine is performed from the lower thoracic spine to the sacrum. Images are reviewed in the axial, sagittal, and coronal planes. IV contrast was not administered for this examination. CT DOSE: 585.47 mGy.cm FINDINGS: The skeletal structures appear osteopenic. There is no evidence of fracture or malalignment. Vertebral body height is maintained throughout the lumbar spine. There are postoperative changes from laminectomy and posterior fusion seen from L4 to S1. Interpedicular screws are present at all levels. The orthopedic hardware appears intact. Again seen is 10 mm of anterolisthesis at L5-S1. The remaining spinous processes as well as the transverse processes appear intact. There is advanced degenerative disc space narrowing at L5-S1, with probable discectomy and near complete bony fusion at this level. The remaining disc spaces appear preserved. A tiny posterior disc osteophyte complex is noted at L4-L5. There is no evidence of large disc herniation. The central canal is clear as visualized. No lytic or blastic lesions are seen. The visualized sacrum and bony pelvis appear intact. Sclerotic change is noted in the sacroiliac joints. There is mild fatty atrophy of the paraspinous musculature. The partially imaged retroperitoneal structures are grossly normal but incompletely evaluated. Post appendectomy change is noted in the right lower quadrant. IMPRESSION: 1. There is no evidence of fracture or malalignment involving the lumbar spine. 2. Postoperative change as above. Electronically signed by: Jh Norris M.D. 02/24/2017 11:10 PM Dictated Date/Time: 02/24/2017 11:05 PM
[2017-02-24] MEDS ORDERED: VNTHFA/IN INH (23:35)
[2017-02-24] MEDS ORDERED: HYDR-3124 PO (23:38)
[2017-02-25] MEDS ORDERED: KETOROLAC TROMETHAMINE 30 MG/ML VIAL IV STA (00:10)
[2017-02-25] MEDS ORDERED: ONDANSETRON INJ 2 MG/ML 2 ML VIAL IV STA (00:10)
[2017-02-25 00:29] VITALS: BP 122/75; PULSE 72; O2SAT 99
--- NOTE | 2017-02-25 00:36 | EMERGENCY ROOM VISIT NOTE ---
History First contact with patient: 21:58 Chief Complaint: BACK PAIN Stated Complaint: BACK PAIN History of Present Illness The patient is a 36 year old female who presents to the Emergency Department by private vehicle for evaluation of her back pain and head pain. She reportedly fell ambulate down sips day. She reportedly slipped. She had no dizziness or lightheadedness prior to the fall. She has a history of lumbar surgeries. She has pain in her low back. She reports a mild headache. In addition, the patient is had vaginal bleeding over the last few days. She was seen in the [place] emergency Department last evening and had labs performed which were unremarkable. She had no other testing performed which is frustrated to the patient. The patient rates her current discomfort as an 8/10. She denies any blurry vision, double vision, neck pain, numbness/weakness to the extremities, chest pain, or abdominal pain. Review of Systems A complete 10-point Review of Systems was discussed with the patient, with pertinent positives and negatives listed in the History of Present Illness. All remaining Review of Systems questions can be considered negative unless otherwise specified. Past Medical/Surgical History Medical Problems: (1) Abdominal pain (2) Abdominal pain, left lower quadrant (3) Acute Pancreatitis, Unspecified (4) Contusion of hand, left (5) Hiatal hernia (6) Hypothyroidism (7) Hypothyroidism, Unspecified (8) Injury of right knee (9) Joint pain (10) Lower extremity edema (11) Major Depressive Disorder, Single Episode, Unspecified (12) Nicotine Dependence, Cigarettes, Uncomplicated (13) Ovarian cyst Surgical Problems: (1) History of appendectomy (2) History of back surgery Family History Cancer Diabetes mellitus FHx: gallbladder disease Heart disease Hypertension Kidney disease Kidney stones Lung disease Seizures Social History Smoking Status: Current Every Day Smoker Alcohol Use: none Drug Use: none Marital Status: in relationship Housing Status: lives with family Occupation Status: unemployed Current/Historical Medications Scheduled Bupropion (Wellbutrin-Xl), 300 MG PO DAILY Citalopram Hydrobromide (Celexa), 20 MG PO HS Levothyroxine Sodium (Levothyroxine Sodium), 175 MCG PO DAILY Quetiapine Fumarate (Seroquel), 100 MG PO HS Scheduled PRN Albuterol Hfa (Ventolin Hfa), 2 PUFFS INH Q4 PRN for SOB/Wheezing Hydroxyzine Hcl (Atarax), 25 MG PO DAILY PRN for Anxiety Allergies Coded Allergies: Fentanyl (Unverified Allergy, Severe, THROAT SWELLING, 02/24/17) Physical Exam Vital Signs Date Time Temp Pulse Resp B/P Pulse Ox O2 Delivery O2 Flow Rate FiO2 02/25/17 00:29 72 19 122/75 99 Room Air 02/24/17 21:34 36.8 93 19 110/71 96 Room Air Pain Rating (0-10): 3 Physical Exam VITAL SIGNS - Vital signs and nursing notes were reviewed. GENERAL - 36-year-old female appearing her stated age who is in no acute distress. Communicates well with provider and answers questions appropriately. HEAD - Normocephalic, Atraumatic. No Marrero's Sign or Raccoon's Eyes. No depressed skull fractures palpable. EYES - PERRL with EOMI bilaterally. Sclera anicteric. Palpebral conjunctiva pink and moist with no injection noted. EARS - No deformities of external structures noted on gross examination bilaterally. No pain elicited with palpation of the tragus bilaterally. External auditory canals without discharge or otorrhea. Tympanic membranes pearly dunbar without retraction or bulging. NOSE - Midline and without cyanosis. No epistaxis or purulent drainage noted. Septum midline without deviation or septal hematoma noted. MOUTH/OROPHARYNX - Without perioral cyanosis. Buccal mucosa pink and moist and without leukoplakia. Tongue midline with equal elevation of palate bilaterally. No tonsillar hypertrophy, erythema, or exudates noted. NECK - Neck with FROM. Supple to palpation. No lymphadenopathy noted. No nuchal rigidity. LUNGS - Chest wall symmetric without accessory muscle use, intercostals retractions, or central cyanosis. Normal vesicular breath sounds CTA B/L. No wheezes, rales, or rhonchi appreciated. CARDIAC - RRR with S1/S2. No murmur, rubs, or gallops appreciated. LUNGS - Chest wall symmetric without accessory muscle use, intercostals retractions, or central cyanosis. Normal vesicular breath sounds CTA B/L. No wheezes, rales, or rhonchi appreciated. CARDIAC - RRR with S1/S2. No murmur, rubs, or gallops appreciated. ABDOMEN - Abdominal contour flat\ and without pulsations or visible masses. Negative [place]'s or Corona Navas's Signs. BS normoactive all four quadrants. No tenderness to palpation appreciated throughout. No guarding Rebound Tenderness. Negative Rovsing's. Negative Abraham's. No palpable masses, hepatosplenomegaly, or ascites noted. EXTREMITIES - No clubbing or peripheral cyanosis. No pretibial edema present. +3 /5 radial and dorsalis pedis pulses palpated throughout. NEUROLOGIC - Cranial nerves II through XII grossly intact. Sensory intact to light touch throughout. Patellar reflexes +2/4. Patient able to perform rapid alternating movements appropriately. Negative Romberg and Pronator Drift. PSYCH - A&Ox3 and cooperates fully with examiner. Pt is very pleasant and interacts well with examiner. Medical Decision & Procedures ER Provider Diagnostic Interpretation: Radiological imaging and reports were reviewed by myself. Radiologist's Interpretation as follows: CT SCAN OF THE CERVICAL SPINE CLINICAL HISTORY: Fall. Neck pain. COMPARISON STUDY: CT scan of cervical spine dated 11/21/2016. TECHNIQUE: CT scan of the cervical spine is performed from the skull base to the upper thoracic spine. Images are reviewed in the axial, sagittal, and coronal planes. IV contrast was not administered for this examination. CT DOSE: 859.44 mGy.cm FINDINGS: Skeletal structures: The skeletal structures are well mineralized. There is no evidence of fracture or subluxation involving the cervical spine. Vertebral body height and alignment are maintained. There is mild straightening of the cervical lordosis. The odontoid process and lateral masses are intact. The atlantoaxial articulation is preserved. The spinous processes appear intact. Intervertebral discs: The disc spaces are well maintained. Posterior disc bulge is again suggested at C5-C6. Central canal: Widely patent. Soft tissues: The prevertebral and paraspinous soft tissues are within normal limits. Calvarium: The visualized calvarium at the skull base appears intact. Brain parenchyma: Partially visualized brain parenchyma the skull base is within normal limits. Sinuses and mastoids: The visualized paranasal sinuses are clear. The mastoid air cells are well pneumatized. Lung apices: Tiny blebs are noted at the right apex. Lung parenchyma is otherwise clear as visualized. IMPRESSION: There is no evidence of fracture or subluxation involving the cervical spine. CT SCAN OF THE BRAIN WITHOUT IV CONTRAST CLINICAL HISTORY: Fall. COMPARISON STUDY: No priors. TECHNIQUE: Unenhanced axial CT scan of the brain is performed from the vertex to the skull base. Automated dose control exposure was utilized. FINDINGS: Brain parenchyma: The brain parenchyma is normal in appearance. There is no hemorrhage, mass effect, or evidence of acute territorial ischemia by CT criteria. Dunbar-white matter is preserved. No extra-axial fluid collection is seen. Ventricles, sulci, cisterns: Normal in configuration. Intracranial vasculature: The visualized intracranial vasculature at the skull base is normal in appearance. Calvarium: There is no depressed calvarial fracture. Sinuses and mastoids: The visualized paranasal sinuses are clear. The mastoid air cells are well pneumatized. Orbits: The bony orbits are grossly intact. IMPRESSION: No acute intracranial abnormality. CT SCAN OF THE LUMBAR SPINE WITHOUT IV CONTRAST CLINICAL HISTORY: Fall with low back pain. COMPARISON STUDY: Progressive lumbar spine dated 02/24/2016. TECHNIQUE: CT scan of the lumbar spine is performed from the lower thoracic spine to the sacrum. Images are reviewed in the axial, sagittal, and coronal planes. IV contrast was not administered for this examination. CT DOSE: 585.47 mGy.cm FINDINGS: The skeletal structures appear osteopenic. There is no evidence of fracture or malalignment. Vertebral body height is maintained throughout the lumbar spine. There are postoperative changes from laminectomy and posterior fusion seen from L4 to S1. Interpedicular screws are present at all levels. The orthopedic hardware appears intact. Again seen is 10 mm of anterolisthesis at L5-S1. The remaining spinous processes as well as the transverse processes appear intact. There is advanced degenerative disc space narrowing at L5-S1, with probable discectomy and near complete bony fusion at this level. The remaining disc spaces appear preserved. A tiny posterior disc osteophyte complex is noted at L4-L5. There is no evidence of large disc herniation. The central canal is clear as visualized. No lytic or blastic lesions are seen. The visualized sacrum and bony pelvis appear intact. Sclerotic change is noted in the sacroiliac joints. There is mild fatty atrophy of the paraspinous musculature. The partially imaged retroperitoneal structures are grossly normal but incompletely evaluated. Post appendectomy change is noted in the right lower quadrant. IMPRESSION: 1. There is no evidence of fracture or malalignment involving the lumbar spine. 2. Postoperative change as above. Radiological imaging and reports were reviewed by myself. Radiologist's Interpretation per [facility] as follows: US PELVIC/ENDOVAG: The uterus is normal in size and without focal lesion. The endometrium is normal in thickness, measuring up to 0.5 cm. Right ovary measures 3.1 x 2.4 x 2.5 cm and contains several nonspecific echogenic foci and a 0.9 cm likely dominant follicle. Blood flow demonstrated in right ovary. Left ovary is obscured by bowel gas. No free fluid in the pelvis. Laboratory Results 02/24/17 22:24 Red Blood Count 4.15, Mean Corpuscular Volume 94.0, Mean Corpuscular Hemoglobin 31.6, Mean Corpuscular Hemoglobin Concent 33.6, Mean Platelet Volume 8.8, Neutrophils (%) (Auto) 51.6, Lymphocytes (%) (Auto) 41.0, Monocytes (%) (Auto) 4.7, Eosinophils (%) (Auto) 2.1, Basophils (%) (Auto) 0.3, Neutrophils # (Auto) 3.94, Lymphocytes # (Auto) 3.13, Monocytes # (Auto) 0.36, Eosinophils # (Auto) 0.16, Basophils # (Auto) 0.02 02/24/17 22:24 Test 02/24/17 22:20 02/24/17 22:24 Urine Color ORANGE Urine Appearance TURBID (CLEAR) Urine pH 7.0 (4.5-7.5) Urine Specific [place] 1.020 (1.000-1.030) Urine Protein 1+ (NEG) Urine Glucose (UA) NEG (NEG) Urine Ketones NEG (NEG) Urine Occult Blood 3+ (NEG) Urine Nitrite NEG (NEG) Urine Bilirubin NEG (NEG) Urine Urobilinogen NEG (NEG) Urine Leukocyte Esterase SMALL (NEG) Urine WBC (Auto) >30 /hpf (0-5) Urine RBC (Auto) >30 /hpf (0-4) Urine Hyaline Casts (Auto) 1-5 /lpf (0-5) Urine Epithelial Cells (Auto) >30 /lpf (0-5) Urine Bacteria (Auto) 2+ (NEG) Urine Test NEG (NEG) Urine Opiates Screen NEG (NEG) Urine Methadone, Qualitative NEG (NEG) Urine Barbiturates NEG (NEG) Urine Phencyclidine (PCP) Level NEG (NEG) Ur Amphetamine/Methamphetamine NEG (NEG) Urine MDE-amphetamine (MDEA) negative Ur Methylenedioxyamphetamine (MDA) negative MDMA (Ecstasy) Screen POS (NEG) Methylenedioxymethamphetamine (MDMA negative Urine Benzodiazepines Screen NEG (NEG) Urine Cocaine Metabolite NEG (NEG) Urine Marijuana (THC) NEG (NEG) White Blood Count 7.63 K/uL (4.8-10.8) Red Blood Count 4.15 M/uL (4.2-5.4) Hemoglobin 13.1 g/dL (12.0-16.0) Hematocrit 39.0 % (37-47) Mean Corpuscular Volume 94.0 fL (80-100) Mean Corpuscular Hemoglobin 31.6 pg (25-34) Mean Corpuscular Hemoglobin Concent 33.6 g/dl (32-36) Platelet Count 342 K/uL (130-400) Mean Platelet Volume 8.8 fL (7.4-10.4) Neutrophils (%) (Auto) 51.6 % Lymphocytes (%) (Auto) 41.0 % Monocytes (%) (Auto) 4.7 % Eosinophils (%) (Auto) 2.1 % Basophils (%) (Auto) 0.3 % Neutrophils # (Auto) 3.94 K/uL (1.4-6.5) Lymphocytes # (Auto) 3.13 K/uL (1.2-3.4) Monocytes # (Auto) 0.36 K/uL (0.11-0.59) Eosinophils # (Auto) 0.16 K/uL (0-0.5) Basophils # (Auto) 0.02 K/uL (0-0.2) RDW Standard Deviation 45.9 fL (36.4-46.3) RDW Coefficient of Variation 13.3 % (11.5-14.5) Immature Granulocyte % (Auto) 0.3 % Immature Granulocyte # (Auto) 0.02 K/uL (0.00-0.02) Prothrombin Time 9.7 SECONDS (9.0-12.0) Prothromb Time International Ratio 0.9 (0.9-1.1) Activated Partial Thromboplast Time 28.9 SECONDS (21.0-31.0) Partial Thromboplastin Ratio 1.1 Anion Gap 8.0 mmol/L (3-11) Est Creatinine Clear Calc Drug Dose 66.1 ml/min Estimated GFR () 74.8 Estimated GFR (Non- 64.5 BUN/Creatinine Ratio 7.1 (10-20) Calcium Level 8.4 mg/dl (8.5-10.1) Magnesium Level 2.3 mg/dl (1.8-2.4) Total Bilirubin 0.2 mg/dl (0.2-1) Aspartate Amino Transf (AST/SGOT) 15 U/L (15-37) Alanine Aminotransferase (ALT/SGPT) 21 U/L (12-78) Alkaline Phosphatase 92 U/L (45-117) Total Protein 7.0 gm/dl (6.4-8.2) Albumin 3.4 gm/dl (3.4-5.0) Globulin 3.6 gm/dl (2.5-4.0) Albumin/Globulin Ratio 0.9 (0.9-2) Date/Time Source Procedure Growth Status 02/24/17 22:20 Urine , Clean Catch Urine Culture - Final THREE TYPES OF ORGANSIMS PRESENT, ALL... Complete Medications Administered Medications (Trade) Dose Ordered Sig/Lulu Route Start Time Stop Time Status Last Admin Dose Admin Ketorolac Tromethamine (Toradol Inj) 30 mg NOW STAT IV 02/25/17 00:10 02/25/17 00:11 DC 02/25/17 00:17 30 MG Ondansetron HCl (Zofran Inj) 4 mg NOW STAT IV 02/25/17 00:10 02/25/17 00:11 DC 02/25/17 00:17 4 MG ED Course Patient was seen and evaluated by myself. CT of the head, cervical spine, lumbar spine were obtained. Pelvic ultrasound was obtained. Laboratory results demonstrate no acute leukocytosis, worrisome anemia, or bandemia. The patient has no significant electrode abnormalities. Imaging studies as above. The patient was reevaluated. She was treated with 30 mg Toradol intravenously for pain. She declines pelvic exam. The patient was encouraged to follow-up with her [facility] from today's visit. She was educated on worrisome symptoms for return visit to the emergency department. Patient discharged home afebrile and in good condition. Medical Decision Given the patient's presentation and stated complaints, I did elect to perform the above-mentioned workup. The patient presents today with ongoing symptoms of vaginal bleeding as well as a recent fall. Her imaging studies were otherwise unremarkable. She is not anemic. She is not hypotensive. The patient declines pelvic exam further evaluation. I'm not comfortable by the patient any further surgical or gynecological evaluation at this point. She was encouraged follow-up with her [facility] from today's visit. She was educated on worrisome symptoms for return visit to the emergency department. Patient discharged home afebrile and in good condition. In the evaluation and treatment of this patient, the following differential diagnoses were considered: Appendicitis, diverticulitis, diverticulosis, ovarian torsion, ruptured ovarian cyst, dyspareunia, amongst others. Impression Primary Impression: Vaginal bleeding Additional Impressions: Fall Head injury Departure Information Dispostion Home / Self-Care Condition GOOD Referrals Abrahan Granado PA-C (PCP) Patient Instructions My [facility] Additional Instructions Patient was seen in the emergency department today for vaginal bleeding and injury sustained after fall. Please follow-up with [facility] from today's visit. For pain control, you can use the following [id number] medicines (if >12 yo): - Regular strength (325mg/tab) Tylenol (acetaminophen) 2 tabs every 4-6 hours as needed. Do not exceed 12 tablets in a 24 hour period. Avoid taking more than 4 grams (4000 mg) of Tylenol per day. This includes any other sources of acetaminophen you may take on a regular basis. - Regular strength (200 mg/tab) Advil (ibuprofen) 1-2 tabs every 4-6 hours as needed. Do not exceed a dose of 3200 mg per day. Return for any changing or worsening symptoms. Problem Qualifiers Additional Impressions: Fall Encounter type: initial encounter Qualified Codes: W19.XXXA - Unspecified fall, initial encounter Head injury Encounter type: initial encounter Qualified Codes: S09.90XA - Unspecified injury of head, initial encounter
--- NOTE | 2017-02-25 06:42 | DIAGNOSTIC IMAGING REPORT ---
EXAMINATION: PELVIC ULTRASOUND (transabdominal and endovaginal scanning) CLINICAL HISTORY: vag bleeding COMPARISON STUDY: CT scan dated 01/15/2017 FINDINGS: The uterus measured 7.4 x 3.7 x 5.2 cm. There is an anterior scar. The endometrial stripe measured 5 mm. The right ovary measured 31 x 23 x 25 mm. The left ovary was not visualized There is no ultrasonographic evidence of ovarian torsion. It should be noted that ovarian torsion can be present with normal Doppler ultrasonographic findings. There was no evidence of pathologic free pelvic fluid. IMPRESSION: Nonvisualization of the left ovary. Otherwise unremarkable pelvic ultrasound. Electronically signed by: Kvng Graves M.D. 02/25/2017 6:40 AM Dictated Date/Time: 02/25/2017 6:38 AM
== END 2017-02-25 00:42 | disposition home or self-care (01) ==
LOC: C.EDB 21:32 → C.EDC 02-25 00:42
DX: S09.90XA Unspecified injury of head, initial encounter (principal); N93.9 Abnormal uterine and vaginal bleeding, unspecified; W01.0XXA Fall on same level from slipping, tripping and stumbling without subsequent striking against object, initial encounter; E03.9 Hypothyroidism, unspecified; F32.9 Major depressive disorder, single episode, unspecified; F17.210 Nicotine dependence, cigarettes, uncomplicated; Z80.9 Family history of malignant neoplasm, unspecified; Z83.3 Family history of diabetes mellitus; Z82.49 Family history of ischemic heart disease and other diseases of the circulatory system; Z82.0 Family history of epilepsy and other diseases of the nervous system; Z79.899 Other long term (current) drug therapy

== ENCOUNTER 2017-03-08 17:24 | Emergency (ER) | payer OTHER ==
[~2017-03-08] VITALS: Ht 167.6 cm; Wt 68.0 kg
[~2017-03-08 17:24] MED LIST changes: -ALBUAER INH; +HYDR-3124 PO; -OXYC1TAB3 PO; +VNTHFA/IN INH
[2017-03-08 17:27] VITALS: TEMP 36.8; Ht 167.6 cm; Wt 68.0 kg
--- NOTE | 2017-03-08 17:51 | DIAGNOSTIC IMAGING REPORT ---
LEFT HAND MIN 3 VIEWS ROUTINE CLINICAL HISTORY: Left hand pain following injury. COMPARISON: Left hand radiographs March 08, 2016. FINDINGS: Alignment of the left hand is anatomic. There is no acute fracture. Carpal bones are intact. IMPRESSION: No acute fracture or dislocation of the left hand. Electronically signed by: Suhail Bailey M.D. 03/08/2017 5:49 PM Dictated Date/Time: 03/08/2017 5:48 PM
[2017-03-08] MEDS ORDERED: NORCO 5/325MG HOME PACK PO ONE (18:00)
[2017-03-08] MEDS ORDERED: HYDR-5688 PO (18:03)
[2017-03-08 18:19] VITALS: BP 116/69; PULSE 104; O2SAT 97
--- NOTE | 2017-03-12 06:48 | EMERGENCY ROOM VISIT NOTE ---
ED Visit Note First contact with patient: 17:36 Chief Complaint: Left hand pain. History of Present Illness: Ms. Patel is a 36-year-old white female who ambulates into the ED complaining of left hand pain. Patient reports 2 days ago she was helping a friend load a washing machine onto a truck when the mold washer fell onto her left hand. She reports since that time she has been having pain primarily over the posterior aspect of the hand. Currently she describes her pain as a combination of sharp and throbbing. She rates her discomfort 8/10. Her pain is nonradiating. Her pain worsens with palpation of all the metacarpals and making a fist. She has not identified any alleviating factors related to the pain. She reports that she has been using [id number] medication with minimal relief of her discomfort. She denies any associated symptoms including elbow pain, forearm pain, finger pain, hand weakness/numbness/tingling. She also denies any previous significant injuries or surgeries to the hand. Review of Systems: As noted above in history of present illness. Past Medical History: Asthma, bronchitis, hypothyroidism, status post cholecystectomy. Current Medications: Celexa, Seroquel, Wellbutrin, levothyroxine, albuterol, Atarax Allergies to Medications: Fentanyl. Social History: Patient is currently employed; she feels safe in her home environment; she denies tobacco use and admits to alcohol use. Physical Examination: Vital Signs: Date Time Temp Pulse Resp B/P Pulse Ox O2 Delivery O2 Flow Rate FiO2 03/08/17 18:19 104 116/69 97 03/08/17 17:27 36.8 112 20 117/67 100 Room Air GENERAL: 36-year-old female in mild to moderate distress due to pain, nontoxic- appearing, afebrile and hemodynamically stable. NEUROLOGICAL: Awake, alert and oriented to person, place and time. Answering questions appropriately and following commands. SKIN: Warm, dry and pink. No open soft tissue trauma noted. LEFT UPPER EXTREMITY: No gross bony deformity. No tenderness in the elbow or forearm. Mild tenderness over the radial and ulnar styloid process without bony deformity or crepitus. Moderate tenderness over the posterior aspect of the hand over the metacarpals without bony deformity or bony crepitus. There is moderate swelling and early ecchymosis. Full range of motion in flexion and extension and radial and ulnar deviation of the wrist, flexion and extension of all MCP and PIP joints. Throughout the hand the skin was warm and pink and capillary refill is brisk. ED Course: Patient is assessed as noted above. Left Hand X-Rays: Were read by myself and the radiologist showing no acute fractures or dislocations. Patient was given ice for pain and swelling; she refused pain medications. Patient was placed in a wrist lacer splint. Patient was educated about tonight's findings and instructed on her treatment plan; she verbalized understanding and agreement with this plan. Clinical Impression: Left hand contusion. Left wrist pain. Decision-Making: Initially my differential diagnosis I considered contusion, fracture, tenderness injury, ligamentous injury and other causes. Patient discharged home in stable condition; prior to departure she was reassessed and subjectively reported she was feeling the same and rated her discomfort / Disposition: Plan: Comfort measures were discussed with the patient including rest, ice, splint use and a sliding pain medication scale of ibuprofen, acetaminophen and [place]; she was educated on the precautions her using narcotics in his feet get advice was reviewed and no significant problems were noted. Patient was encouraged to follow-up with orthopedist if no better in 7-10 days. Patient was encouraged return the ED for worsening/uncontrolled pain, uncontrolled swelling, finger weakness/numbness/tingling or any new/concerning symptoms.
== END 2017-03-08 18:20 | disposition home or self-care (01) ==
LOC: C.EDB 17:26 → C.EDD 18:20
DX: S60.222A Contusion of left hand, initial encounter (principal); M25.532 Pain in left wrist; W22.8XXA Striking against or struck by other objects, initial encounter; Y93.89 Activity, other specified; J45.909 Unspecified asthma, uncomplicated; E03.9 Hypothyroidism, unspecified; Z90.49 Acquired absence of other specified parts of digestive tract; Z79.899 Other long term (current) drug therapy

== ENCOUNTER 2017-04-15 16:45 | Emergency (ER) | payer OTHER ==
[~2017-04-15] VITALS: Ht 167.6 cm; Wt 67.1 kg
[~2017-04-15 16:45] MED LIST changes: +HYDR-5688 PO
[2017-04-15 17:01] VITALS: TEMP 36.8; Ht 167.6 cm; Wt 67.1 kg
[2017-04-15] MEDS ORDERED: HYDROCODONE/ACETAMOPHEN 5/325MG TAB PO PRN (18:30)
--- NOTE | 2017-04-15 19:30 | DIAGNOSTIC IMAGING REPORT ---
C-SPINE ROUTINE 4 OR 5 VIEWS CLINICAL HISTORY: Pain. COMPARISON STUDY: Cervical spine CT February 24, 2017. FINDINGS: Alignment of the cervical spine is anatomic. Vertebral body heights are maintained. There is no fracture or suspicious lesion. There is minimal osteophytosis at C5-C6. IMPRESSION: 1. No cervical spine fracture or subluxation. 2. Minimal degenerative disc disease at C5-C6. Electronically signed by: Suhail Bailey M.D. 04/15/2017 7:28 PM Dictated Date/Time: 04/15/2017 7:27 PM
--- NOTE | 2017-04-15 19:31 | DIAGNOSTIC IMAGING REPORT ---
THORACIC SPINE 3 VIEWS ROUTINE CLINICAL HISTORY: Back pain. COMPARISON STUDY: Chest CT October 20, 2016. FINDINGS: Vertebral body heights are maintained. No fracture or suspicious lesion is identified by radiography. There is minimal S-shaped curvature of the thoracic spine. Disc spaces are preserved. There is mild endplate osteophytosis. IMPRESSION: 1. No thoracic spine fracture or subluxation identified. 2. Minimal S-shaped curvature of the thoracic spine. 3. Minimal multilevel degenerative disc disease Electronically signed by: Suhail Bailey M.D. 04/15/2017 7:30 PM Dictated Date/Time: 04/15/2017 7:29 PM
--- NOTE | 2017-04-15 19:34 | DIAGNOSTIC IMAGING REPORT ---
L-SPINE MIN 4 VIEWS ROUTINE CLINICAL HISTORY: Back pain spine to sacrum COMPARISON: Lumbar spine CT February 24, 2017. FINDINGS: Postsurgical findings consistent with a multilevel fusion at the lumbosacral junction are unchanged since prior exam of February 24, 2017 and February 24, 2016. Suspected transitional vertebra at the lumbosacral junction is noted. For purposes of numbering on this exam, L1 represents the first nonrib-bearing vertebra and therefore there are postsurgical findings consistent with posterior fusion at the L5-S2 levels. Anterolisthesis of S1 on S2 is unchanged. Hardware is intact. There is no lumbar spine fracture. IMPRESSION: 1. No acute lumbar spine fracture. 2. Stable postsurgical findings at the lumbosacral junction. 3. Stable anterolisthesis of S1 on S2 when using above numbering scheme. Electronically signed by: Suhail Bailey M.D. 04/15/2017 7:33 PM Dictated Date/Time: 04/15/2017 7:30 PM
--- NOTE | 2017-04-15 20:34 | EMERGENCY ROOM VISIT NOTE ---
ED Visit Note First contact with patient: 17:22 CHIEF COMPLAINT: back pain from neck to sacrum HISTORY OF PRESENT ILLNESS: This 36-year-old female patient presents to the emergency department ambulatory, with her usjnwj-jy-elc complaining of pain in the entire back which began today. Patient states she has been cleaning junk outside of her house, and lifting heavy objects. She states she has pain throughout her entire back with weakness of bilateral lower extremities. Patient also reports sharp pain throughout the back when bending. She states when she turns her left leg outward, she experiences excruciating pains, numbness, tingling radiating down her legs. Patient states in the upper neck, she is experiencing a grinding sensation, and states she feels that her neck has to pop, however has been unable to do this. Patient denies specific injury to the back. She does have a history of several lower back surgeries, several years ago. She states "my lower spine slid and it pinched off all of my nerves ". Patient sees Dr. Pascual, a presentation specialist at [facility]. Patient currently lives in [facility]. She has not yet seen her primary care provider, Dr. Granado in [place] regarding this complaint. She states it is too difficult to get in contact with Dr. Granado for an appointment. The patient notes the pain as excruciating, sharp, stabbing, tingling and a 10/10. The patient has taken nothing for relief of the pain. The patient denies any loss of control of their bowel or bladder functions, however states she is experiencing urgency to urinate, and difficulty holding her bladder. There has been bilateral leg numbness and weakness, but no change in sensation. No nausea or vomiting or abdominal pain. No chest pain or shortness of breath. The patient has had prior back injuries and surgeries as outlined above. No dysuria or increased urinary frequency. REVIEW OF SYSTEMS: A 10-system review of systems was performed with positives and pertinent negatives listed in the history of present illness. All other systems were reviewed and are negative. ALLERGIES: Fentanyl MEDICATIONS: Celexa, Seroquel, Wellbutrin, levothyroxine, albuterol, hydroxyzine PMH: Anxiety, depression, insomnia, hypothyroidism, asthma SOCIAL HISTORY: Patient lives locally with her family. Patient admits to smoking one pack per day. She denies alcohol or drug use. PHYSICAL EXAM: VITALS: Vitals are noted on the nurse's note and reviewed by myself. Vital signs stable. GENERAL: 36-year-old female, in no acute distress, nondiaphoretic, well- developed well-nourished. SKIN: The skin was without rashes, erythema, edema, or bruising. Capillary refill less than 2 seconds. NECK: Supple without nuchal rigidity. Tenderness throughout cervical spine spine as well as paraspinous muscle tenderness. No upper extremity weakness noted HEART: Regular rate and rhythm without murmurs gallops or rubs. LUNGS: Clear to auscultation bilaterally without wheezes, rales or rhonchi. ABDOMEN: Positive bowel sounds x 4. Normal tympanic percussion. Soft, nontender, without masses or organomegaly. Abraham sign negative. No CVA tenderness, however difficult to examine due to extreme tenderness throughout entire back. MUSCULOSKELETAL: No muscle atrophy, erythema, or edema noted of the back. There is extreme tenderness over the thoracic and lumbar spinous processes. There is severe tenderness over the paraspinous muscles bilaterally in thoracic and lumbar region. There are no muscle spasms present. The patient is slow to move around with maximum tenderness with any activity. Positive straight leg raise test bilaterally. NEURO: Patient was alert and oriented to person place and time. Normal sensation to light and sharp touch. Deep tendon reflexes 2+ in the lower and upper extremities. Dorsalis pedis and radial pulses 2+ bilaterally. Strength 3 /5 and equal in the bilateral lower extremities. EMERGENCY DEPARTMENT COURSE: Patient was seen and evaluated as above. X-rays of entire spine performed and reviewed by me and radiologist with findings as follows: Cervical Spine: FINDINGS: Alignment of the cervical spine is anatomic. Vertebral body heights are maintained. There is no fracture or suspicious lesion. There is minimal osteophytosis at C5-C6. IMPRESSION: 1. No cervical spine fracture or subluxation. 2. Minimal degenerative disc disease at C5-C6. Thoracic Spine: FINDINGS: Postsurgical findings consistent with a multilevel fusion at the lumbosacral junction are unchanged since prior exam of February 24, 2017 and February 24, 2016. Suspected transitional vertebra at the lumbosacral junction is noted. For purposes of numbering on this exam, L1 represents the first nonrib-bearing vertebra and therefore there are postsurgical findings consistent with posterior fusion at the L5-S2 levels. Anterolisthesis of S1 on S2 is unchanged. Hardware is intact. There is no lumbar spine fracture. IMPRESSION: 1. No acute lumbar spine fracture. 2. Stable postsurgical findings at the lumbosacral junction. 3. Stable anterolisthesis of S1 on S2 when using above numbering scheme. Lumbar Spine: FINDINGS: Vertebral body heights are maintained. No fracture or suspicious lesion is identified by radiography. There is minimal S-shaped curvature of the thoracic spine. Disc spaces are preserved. There is mild endplate osteophytosis. IMPRESSION: 1. No thoracic spine fracture or subluxation identified. 2. Minimal S-shaped curvature of the thoracic spine. 3. Minimal multilevel degenerative disc disease Patient given dose of [place], reports mild improvement in symptoms. X-ray findings reviewed as above. Discussion with patient regarding MRI scan completed in the emergency department versus outpatient. I discussed with patient the potential for incurring the bill for the MRI scan that is completed in the emergency department without a prior authorization from her insurance. Patient understands this risk and wishes to proceed with the scan at this time. I also discussed the likelihood that this is an acute exacerbation of a chronic injury, and suspect patient will need to follow up outpatient regardless of results. Due to muscle weakness, difficulty holding urination, radicular symptoms, MRI ordered in the emergency department with findings as follows: FINDINGS: For purposes of numbering on this exam, the L5-S1 disc space is assigned to axial image 27 of 38. When utilizing this numbering scheme, there are bilateral pedicle screws at the L5, S1 and S2 levels. There is an S1-S2 fusion. 1 cm of anterolisthesis of S1 on S2 is unchanged since CT of February 24, 2017. There is no intracanalicular mass or fluid collection. Conus terminates at the lower L2 level. Paravertebral soft tissues are unremarkable. There may may be trace presacral edema. L1-2: The central canal and neural foramen are patent. L2-3: The central canal and neural foramen are patent L3-4: The central canal and neural foramen are patent. L4-5: There is facet arthrosis. The central canal and neural foramen are patent. L5-S1: There is a tiny central disc protrusion. Central canal is patent. Neural foramen are suboptimally assessed due to artifact but appear patent. S1-S2: The central canal is patent. Anterolisthesis is unchanged. The neural foramen are suboptimally assessed due to artifact but likely patent. No high-grade neural foraminal stenosis. IMPRESSION: 1. Possible trace presacral edema, a nonspecific finding. 2. No lumbar spine fracture identified. No intracanalicular fluid collection. 3. Status post L5-S2 bilateral pedicle screw fusion with stable anterolisthesis of S1 on S2 since CT of February 24, 2017. Stable postoperative appearance. Urinalysis appears to be contaminated specimen, but no signs of nephrolithiasis or UTI. PDMP consulted and no significant history of narcotic usage. Pt. denies use of narcotics as prescribed and documented in PDMP by provider in [place]. Pt. states she contacted her pharmacy while in the ED and informed them of the mistake. She will address this tomorrow. DIAGNOSIS: Lumbar strain DIFFERENTIAL DIAGNOSIS: Herniated disc, spondylolisthesis, spinal stenosis, degenerative disc disease, compression fracture, osteoarthritis, lumbar fracture , renal infection or stone, malignancy DISCHARGE INSTRUCTIONS AND TREATMENT: Rest off your feet for 1 to 2 days, ice for 24 hrs then heat to the low back. See your PCP in 2-3 days for follow-up regarding symptoms. Follow-up with your orthopedic presentation specialist regarding ongoing discomfort in 5-7 days. You may take Ibuprofen 600 mg and Tylenol 1000 mg every 6 hours if needed for the pain. May take [place] 1 tablet every 6 hrs for worse pain. You have been prescribed a Medrol Dosepak. This is a steroid which will help decrease your inflammation, redness, and itch. Take the medicine as prescribed. Take the ENTIRE 6 day course of the steroids. Flexeril 3 times a day as needed for muscle spasm. No driving or alcohol use with [place] and Flexeril. Return if any problems with bowel or bladder function or if loss of sensation/ movement of lower extremities. Problem List Medical Problems: (1) Abdominal pain Status: Resolved (2) Abdominal pain, left lower quadrant Status: Resolved (3) Contusion of hand, left Status: Resolved (4) Hiatal hernia Status: Resolved (5) Hypothyroidism Status: Resolved (6) Injury of right knee Status: Resolved (7) Joint pain Status: Resolved (8) Lower extremity edema Status: Resolved (9) Ovarian cyst Status: Resolved Surgical Problems: (1) History of appendectomy Status: Resolved (2) History of back surgery Status: Resolved Current/Historical Medications Scheduled Bupropion (Wellbutrin-Xl), 300 MG PO DAILY Citalopram Hydrobromide (Celexa), 20 MG PO HS Levothyroxine Sodium (Levothyroxine Sodium), 175 MCG PO DAILY Quetiapine Fumarate (Seroquel), 100 MG PO HS Scheduled PRN Albuterol Hfa (Ventolin Hfa), 2 PUFFS INH Q4 PRN for SOB/Wheezing Hydroxyzine Hcl (Atarax), 25 MG PO DAILY PRN for Anxiety Allergies Coded Allergies: Fentanyl (Unverified Allergy, Severe, THROAT SWELLING, 04/15/17) Vital Signs Date Time Temp Pulse Resp B/P (MAP) Pulse Ox O2 Delivery O2 Flow Rate FiO2 04/15/17 17:01 36.8 88 18 103/71 98 Room Air Laboratory Results Test 04/15/17 12:05 Urine Color YELLOW Urine Appearance CLOUDY (CLEAR) Urine pH 8.0 (4.5-7.5) Urine Specific [place] 1.026 (1.000-1.030) Urine Protein NEG (NEG) Urine Glucose (UA) NEG (NEG) Urine Ketones NEG (NEG) Urine Occult Blood NEG (NEG) Urine Nitrite NEG (NEG) Urine Bilirubin NEG (NEG) Urine Urobilinogen NEG (NEG) Urine Leukocyte Esterase TRACE (NEG) Urine WBC (Auto) 1-5 /hpf (0-5) Urine RBC (Auto) 0-4 /hpf (0-4) Urine Hyaline Casts (Auto) 5-10 /lpf (0-5) Urine Epithelial Cells (Auto) >30 /lpf (0-5) Urine Bacteria (Auto) 4+ (NEG) Medications Administered Medications (Trade) Dose Ordered Sig/Lulu Route Start Time Stop Time Status Last Admin Dose Admin Acetaminophen/ Hydrocodone Bitart ([place] 5/325 Tab) 1 tab NOW PRN PO 04/15/17 18:30 04/29/17 18:29 04/15/17 19:41 1 TAB Departure Information Impression Primary Impression: Back pain Additional Impressions: Radiculopathy due to lumbar intervertebral disc disorder Neck pain, bilateral Thoracic back pain Dispostion Home / Self-Care Condition GOOD Prescriptions Cyclobenzaprine Hcl (FLEXERIL) 5 Mg Tab 1-2 TAB PO TID Y for Muscle Spasms for 5 Days, #30 TAB Prov: Humaira Waldron PA-C 04/15/17 Hydrocodone/Acetaminophen 5MG/325MG ([place] 5MG/325MG) Tab 1 TABLET PO Q6 Y for Pain, #12 TAB For Initial Treatment Prov: Humaira Waldron PA-C 04/15/17 Methylprednisolone (MEDROL DOSEPAK) 4 Mg [place] 0 PO DAILY, #1 PKT Prov: Humaira Waldron PA-C 04/15/17 Referrals Abrahan Granado PA-C (PCP) Jacob Pascual M.D. Patient Instructions [facility] Additional Instructions You have been treated in the Emergency Department for Back Pain. You have received pain medicine in the emergency department which impairs your ability to operate a vehicle. It is illegal for you to drive after receiving these medicines. You have been prescribed [place] to be used for pain control. This is a narcotic medication. You cannot drive or consume alcohol while on this medicine. This medicine should only be used for pain that cannot be controlled with over-the- counter pain medicines. You have been prescribed Flexeril (cyclobenzaprine) 1-2 tabs orally, three times per day. Do NOT exceed 30 mg (6 tabs) per day. Take your first dose at bedtime as it can make you drowsy. Always take all medications as prescribed. You have been prescribed a Medrol Dosepak. This is a steroid which will help decrease your inflammation, redness, and itch. Take the medicine as prescribed. Take the ENTIRE 6 day course of the steroids. For pain control, you can use the following [id number] medicines (if >12 yo): - Regular strength (325mg/tab) Tylenol (acetaminophen) 2 tabs every 4-6 hours as needed. Do not exceed 12 tablets in a 24 hour period. Avoid taking more than 4 grams (4000 mg) of Tylenol per day. This includes any other sources of acetaminophen you may take on a regular basis. - Regular strength (200 mg/tab) Advil (ibuprofen) 1-2 tabs every 4-6 hours as needed. Do not exceed a dose of 3200 mg per day. If this is an acute injury, ice can be applied to the area of pain for the first 3 days to help decrease pain and inflammation. After the first 3 days, a heating pad can be used over the area for continued soothing relief. You should schedule a follow-up appointment in 2-3 days with your Primary Care Provider for further evaluation and treatment of your back pain. Follow-up in 3-7 days with your orthopedic spine surgeon. Return to the Emergency Department if your current symptoms worsen despite treatment course outlined above, or if you develop any of the following symptoms : intractable pain despite aforementioned treatment course, loss of control of your bowel or bladder, numbness or tingling in your groin, or development of a fever. Problem Qualifiers Primary Impression: Back pain Back pain location: low back pain Chronicity: acute Back pain laterality: bilateral Sciatica presence: with sciatica Sciatica laterality: bilateral sciatica Qualified Codes: M54.42 - Lumbago with sciatica, left side; M54.41 - Lumbago with sciatica, right side
[2017-04-15 20:41] LABS: URINE APPEARANCE CLOUDY (CLEAR); URINE BILIRUBIN NEG (NEG); URINE COLOR YELLOW; URINE EPITHELIAL CELL AUTO >30 /lpf (0-5); URINE NITRITE NEG (NEG); URINE SPECIFIC GRAVITY 1.026 (1.000-1.030); UROBILINOGEN NEG (NEG); ZZUR CULT IF INDIC CLEAN CATCH YES
[2017-04-15 20:46] LABS: MANUAL MICROSCOPIC REQUIRED? NO; REVIEW REQ? NO
--- NOTE | 2017-04-15 21:35 | DIAGNOSTIC IMAGING REPORT ---
MRI OF THE LUMBAR SPINE WITHOUT CONTRAST CLINICAL HISTORY: Low back pain with radiculopathy, decreased strength LE COMPARISON STUDY: Lumbar spine CT February 24, 2017 and lumbar spine radiographs performed earlier today. TECHNIQUE: Utilizing a 1.5 Esther magnet and dedicated coil, multiplanar, multiecho imaging of the lumbar spine was performed without IV contrast. FINDINGS: For purposes of numbering on this exam, the L5-S1 disc space is assigned to axial image 27 of 38. When utilizing this numbering scheme, there are bilateral pedicle screws at the L5, S1 and S2 levels. There is an S1-S2 fusion. 1 cm of anterolisthesis of S1 on S2 is unchanged since CT of February 24, 2017. There is no intracanalicular mass or fluid collection. Conus terminates at the lower L2 level. Paravertebral soft tissues are unremarkable. There may may be trace presacral edema. L1-2: The central canal and neural foramen are patent. L2-3: The central canal and neural foramen are patent L3-4: The central canal and neural foramen are patent. L4-5: There is facet arthrosis. The central canal and neural foramen are patent. L5-S1: There is a tiny central disc protrusion. Central canal is patent. Neural foramen are suboptimally assessed due to artifact but appear patent. S1-S2: The central canal is patent. Anterolisthesis is unchanged. The neural foramen are suboptimally assessed due to artifact but likely patent. No high-grade neural foraminal stenosis. IMPRESSION: 1. Possible trace presacral edema, a nonspecific finding. 2. No lumbar spine fracture identified. No intracanalicular fluid collection. 3. Status post L5-S2 bilateral pedicle screw fusion with stable anterolisthesis of S1 on S2 since CT of February 24, 2017. Stable postoperative appearance. Electronically signed by: Suhail Bailey M.D. 04/15/2017 9:33 PM Dictated Date/Time: 04/15/2017 9:25 PM
[2017-04-15] MEDS ORDERED: HYDR-5688 PO (21:51)
[2017-04-15] MEDS ORDERED: CYCL5TAB PO (21:51)
[2017-04-15] MEDS ORDERED: METH4PAK PO (21:51)
[2017-04-15 22:04] VITALS: BP 105/62; PULSE 63; O2SAT 94
== END 2017-04-15 22:07 | disposition home or self-care (01) ==
LOC: C.EDB 16:46 → C.EDD 22:07
DX: M51.16 Intervertebral disc disorders with radiculopathy, lumbar region (principal); S39.012A Strain of muscle, fascia and tendon of lower back, initial encounter; M54.2 Cervicalgia; X50.9XXA Other and unspecified overexertion or strenuous movements or postures, initial encounter; Y93.89 Activity, other specified; Y99.8 Other external cause status; Y92.009 Unspecified place in unspecified non-institutional (private) residence as the place of occurrence of the external cause; J45.909 Unspecified asthma, uncomplicated; F32.9 Major depressive disorder, single episode, unspecified; F41.9 Anxiety disorder, unspecified; E03.9 Hypothyroidism, unspecified; F17.200 Nicotine dependence, unspecified, uncomplicated; Z90.89 Acquired absence of other organs; Z98.890 Other specified postprocedural states; Z79.899 Other long term (current) drug therapy

== ENCOUNTER 2017-04-22 20:35 | Emergency (ER) | payer OTHER ==
[~2017-04-22] VITALS: Ht 167.6 cm; Wt 66.8 kg
[~2017-04-22 20:35] MED LIST changes: +METH4PAK PO
[2017-04-22 20:38] VITALS: Ht 167.6 cm; Wt 66.8 kg
[2017-04-22 21:51] VITALS: TEMP 36.8
[2017-04-22] MEDS ORDERED: SODIUM CHLORIDE 0.9% 1000ML 1,000 ML IV STA (21:51)
[2017-04-22] MEDS ORDERED: SODIUM CHLORIDE 0.9% 500ML 500 ML IV STA (21:51)
[2017-04-22] MEDS ORDERED: OPTIRAY 320 IV PRN (22:00)
[2017-04-22 22:01] LABS: BASO % 0.2 %; BASO ABS # 0.02 K/uL (0-0.2); COMPLETE YES; EOS % 1.8 %; IG% 0.1 %; LYMPH % 34.7 %; LYMPH ABS # 3.39 K/uL (1.2-3.4); MEAN CELL VOLUME 92.7 fL (80-100); MEAN CORPUSCULAR HEMOGLOBIN 30.7 pg (25-34); MEAN CORPUSCULAR HGB CONC 33.2 g/dl (32-36); MEAN PLATELET VOLUME 9.4 fL (7.4-10.4); MONO % 6.5 %; NEUT % 56.7 %; PLATELET COUNT 303 K/uL (130-400); URINE APPEARANCE CLEAR (CLEAR); URINE BILIRUBIN NEG (NEG); URINE COLOR YELLOW; URINE NITRITE NEG (NEG); URINE PH 7.5 (4.5-7.5); UROBILINOGEN NEG (NEG); WHITE BLOOD COUNT 9.78 K/uL (4.8-10.8); ZZUR CULT IF INDIC CLEAN CATCH NO
[2017-04-22 22:03] LABS: MANUAL MICROSCOPIC REQUIRED? NO; REVIEW REQ? NO
--- NOTE | 2017-04-22 22:17 | EMERGENCY ROOM VISIT NOTE ---
History Report prepared by Marti: Berny Hardin Under the Supervision of: Dr. Maggie Muhammad M.D. First contact with patient: 21:40 Chief Complaint: WOUND INFECTION Stated Complaint: HEMORRHOID SURGERY, IT'S INFECTED Nursing Triage Summary: had hemerroid surgery last week and now has "green stuff coming out of it" History of Present Illness The patient is a 36 year old female who presents to the Emergency Room with complaints of constant pain with straining tenesmus beginning 4 days ago. She currently rates her discomfort a 5/10 in severity. The patient states that she is currently recovering from a rectal hemorrhoidectomy that was preformed at [facility]. She reports that she is currently experiencing green seepage from her rectum. The patient notes that she has experienced lightheadedness, a fever of 101 degrees, weakness, diaphoresis, chills, and abdominal pain. The patient denies dysuria and the chance of being . She reports that she is staying hydrated because the ER was the last place she wanted to be. The patient states that it is hard to have a bowel movement, and when she does it vasquez, even with diarrhea. She notes that her last know menstrual period was this week. Source of History: patient Onset: 4 days ago Position: buttock Symptom Intensity: 5/10 Quality: other (straining tenesmus) Timing: constant Associated Symptoms: + fevers, + chills, + diaphoresis, + abdominal pain, + weakness Note: The patient notes that she has experienced lightheadedness. The patient denies dysuria and the chance of being . Review of Systems See HPI for pertinent positives & negatives. A total of 10 systems reviewed and were otherwise negative. Past Medical & Surgical Medical Problems: (1) Abdominal pain (2) Abdominal pain, left lower quadrant (3) Acute Pancreatitis, Unspecified (4) Contusion of hand, left (5) Hiatal hernia (6) Hypothyroidism (7) Hypothyroidism, Unspecified (8) Injury of right knee (9) Joint pain (10) Lower extremity edema (11) Major Depressive Disorder, Single Episode, Unspecified (12) Nicotine Dependence, Cigarettes, Uncomplicated (13) Ovarian cyst Surgical Problems: (1) History of appendectomy (2) History of back surgery Family History Cancer Diabetes mellitus FHx: gallbladder disease Heart disease Hypertension Kidney disease Kidney stones Lung disease Seizures Social History Smoking Status: Never Smoker Alcohol Use: none Drug Use: none Marital Status: in relationship Housing Status: lives with family Occupation Status: unemployed Current/Historical Medications Scheduled Bupropion (Wellbutrin-Xl), 300 MG PO DAILY Citalopram Hydrobromide (Celexa), 20 MG PO HS Hydrocortisone Acetate (Rectal (Anusol-Hc), 1 SUPP NV BID Levothyroxine Sodium (Levothyroxine Sodium), 175 MCG PO DAILY Quetiapine Fumarate (Seroquel), 100 MG PO HS Scheduled PRN Albuterol Hfa (Ventolin Hfa), 2 PUFFS INH Q4 PRN for SOB/Wheezing Hydroxyzine Hcl (Atarax), 25 MG PO DAILY PRN for Anxiety Allergies Coded Allergies: Fentanyl (Unverified Allergy, Severe, THROAT SWELLING, 04/22/17) Physical Exam Vital Signs Date Time Temp Pulse Resp B/P (MAP) Pulse Ox O2 Delivery O2 Flow Rate FiO2 04/22/17 22:44 68 20 106/64 98 Room Air 04/22/17 21:51 36.8 16 118/70 98 Room Air 04/22/17 20:38 37.1 96 18 112/78 97 Room Air Physical Exam Vital signs reviewed. General: Well-appearing, in no significant distress. HEENT: No scleral icterus, PERRLA, neck supple. Atraumatic. Cardiovascular: Regular rate and rhythm, no extra sounds. Pulmonary: Clear to auscultation bilaterally, normal work of breathing. Abdomen: Soft, nontender, nondistended, positive bowel sounds. Rectal: Normal rectal mucosa with several post-surgical wounds, appear to be well healing, no gross bleeding Musculoskeletal: Atraumatic, no peripheral edema. Neurologic: Patient awake alert and oriented x 3 Skin: Warm, dry, no rash Medical Decision & Procedures ER Provider Diagnostic Interpretation: Radiology results as stated below per my review and radiologist interpretation: CT pelvis PELVIS W/IV CONT ONLY (CT) CLINICAL HISTORY: Paravertebral abscess. Hemorrhoidectomy. TECHNIQUE: Transaxial acquisition with multi axial reformatted images COMPARISON STUDY: 01/15/2017. FINDINGS: Bowel pattern is nonobstructive within the pelvis. Bladder is midline. There is no evidence for abscess or collection. Perirectal fascial planes appear unremarkable. No significant infiltrative changes of the surrounding fat or fascial planes is present. IMPRESSION: No acute process of the pelvis. Study is specifically negative for abscess or collection. Electronically signed by: Jacob Contreras M.D. 04/22/2017 10:46 PM Dictated Date/Time: 04/22/2017 10:42 PM KUB CLINICAL HISTORY: CONSTIPATION pain COMPARISON STUDY: No previous studies for comparison. FINDINGS: The soft tissues, psoas shadows, renal outlines and intestinal gas pattern appear normal. There is no evidence for bowel obstruction. No abnormal abdominal calcifications are seen. Postoperative changes low lumbar spine. Contrast within the urinary tracts prior contrast study. IMPRESSION: Nonobstructive bowel pattern. No evidence for fecal impaction. Electronically signed by: Jacob Contreras M.D. 04/22/2017 11:04 PM Dictated Date/Time: 04/22/2017 11:03 PM Laboratory Results 04/22/17 21:30 Red Blood Count 4.10, Mean Corpuscular Volume 92.7, Mean Corpuscular Hemoglobin 30.7, Mean Corpuscular Hemoglobin Concent 33.2, Mean Platelet Volume 9.4, Neutrophils (%) (Auto) 56.7, Lymphocytes (%) (Auto) 34.7, Monocytes (%) (Auto) 6.5, Eosinophils (%) (Auto) 1.8, Basophils (%) (Auto) 0.2, Neutrophils # (Auto) 5.54, Lymphocytes # (Auto) 3.39, Monocytes # (Auto) 0.64, Eosinophils # (Auto) 0.18, Basophils # (Auto) 0.02 04/22/17 21:30 Test 04/22/17 21:30 White Blood Count 9.78 K/uL (4.8-10.8) Red Blood Count 4.10 M/uL (4.2-5.4) Hemoglobin 12.6 g/dL (12.0-16.0) Hematocrit 38.0 % (37-47) Mean Corpuscular Volume 92.7 fL (80-100) Mean Corpuscular Hemoglobin 30.7 pg (25-34) Mean Corpuscular Hemoglobin Concent 33.2 g/dl (32-36) Platelet Count 303 K/uL (130-400) Mean Platelet Volume 9.4 fL (7.4-10.4) Neutrophils (%) (Auto) 56.7 % Lymphocytes (%) (Auto) 34.7 % Monocytes (%) (Auto) 6.5 % Eosinophils (%) (Auto) 1.8 % Basophils (%) (Auto) 0.2 % Neutrophils # (Auto) 5.54 K/uL (1.4-6.5) Lymphocytes # (Auto) 3.39 K/uL (1.2-3.4) Monocytes # (Auto) 0.64 K/uL (0.11-0.59) Eosinophils # (Auto) 0.18 K/uL (0-0.5) Basophils # (Auto) 0.02 K/uL (0-0.2) RDW Standard Deviation 43.1 fL (36.4-46.3) RDW Coefficient of Variation 12.9 % (11.5-14.5) Immature Granulocyte % (Auto) 0.1 % Immature Granulocyte # (Auto) 0.01 K/uL (0.00-0.02) Urine Color YELLOW Urine Appearance CLEAR (CLEAR) Urine pH 7.5 (4.5-7.5) Urine Specific Ramsey 1.020 (1.000-1.030) Urine Protein NEG (NEG) Urine Glucose (UA) NEG (NEG) Urine Ketones NEG (NEG) Urine Occult Blood NEG (NEG) Urine Nitrite NEG (NEG) Urine Bilirubin NEG (NEG) Urine Urobilinogen NEG (NEG) Urine Leukocyte Esterase NEG (NEG) Anion Gap 9.0 mmol/L (3-11) Est Creatinine Clear Calc Drug Dose 77.4 ml/min Estimated GFR () 90.5 Estimated GFR (Non- 78.1 BUN/Creatinine Ratio 6.0 (10-20) Calcium Level 9.0 mg/dl (8.5-10.1) Total Bilirubin 0.1 mg/dl (0.2-1) Direct Bilirubin mg/dl (0-0.2) Aspartate Amino Transf (AST/SGOT) 20 U/L (15-37) Alanine Aminotransferase (ALT/SGPT) 19 U/L (12-78) Alkaline Phosphatase 96 U/L (45-117) Total Protein 6.8 gm/dl (6.4-8.2) Albumin 3.3 gm/dl (3.4-5.0) Chemistry Specimen Hemolysis Laboratory results per my review. Medications Administered Medications (Trade) Dose Ordered Sig/Lulu Route Start Time Stop Time Status Last Admin Dose Admin Sodium Chloride 500 ml @ 999 mls/hr Q31M STAT IV 04/22/17 21:51 04/22/17 22:21 DC 04/22/17 22:04 999 MLS/HR Sodium Chloride 1,000 ml @ 125 mls/hr Q8H STAT IV 04/22/17 21:51 04/22/17 23:48 DC 04/22/17 22:04 125 MLS/HR Hydrocortisone Acetate (Anusol Hc Supp) 25 mg NOW STAT NV 04/22/17 22:58 04/22/17 22:59 DC 04/22/17 23:10 25 MG ED Course 2150: Ordered Sodium Chloride 1000 ml @ 125 mls/hr IV, Sodium Chloride 500 ml @ 999 mls/hr IV 2151: Past medical records reviewed. The patient was evaluated in room B12B. A complete history and physical examination was performed. 2257: Ordered Anusol Hc Supp 25 mg NV 7: Upon reevaluation, the patient appeared to have improvement of her symptoms. I discussed findings with her. She verbalized agreement of the treatment plan. The patient was discharged home. Medical Decision Differential diagnosis: Perirectal abscess, internal hemorrhoid, enteric fistula , proctitis, UTI This patient was evaluated and appeared to be in some discomfort. Patient seemed to have significant pain on rectal exam. There is no palpable mass and the surgical incisions appear to be well-healing. CT scan of the pelvis was performed to rule out perirectal abscess, this study is negative. Laboratory work is fairly unrevealing. She was informed of the findings. She was given a prescription for Anusol HC suppositories twice a day for 7 days. She will continue her pain medications as prescribed and follow-up with her primary care physician for reevaluation. She will return to the ER for worsening of symptoms or any medical concerns. Impression Primary Impression: Anal or rectal pain Additional Impression: S/P hemorrhoidectomy Scribe Attestation The scribe's documentation has been prepared under my direction and personally reviewed by me in its entirety. I confirm that the note above accurately reflects all work, treatment, procedures, and medical decision making performed by me. Departure Information Dispostion Home / Self-Care Prescriptions Hydrocortisone Acetate (Rectal (ANUSOL-HC) 25 Mg Sup 1 SUPP NV BID for 7 Days, #14 SUPP Prov: Maggie Muhammad M.D. 04/22/17 Referrals No Doctor, Assigned (PCP) Forms HOME CARE DOCUMENTATION FORM, IMPORTANT VISIT INFORMATION, WORK / SCHOOL INSTRUCTIONS Patient Instructions My [facility] Additional Instructions Diagnosis: Rectal pain s/p hemorrhoidectomy Anusol HC 1 suppository rectally twice daily for 7 days. Miralax 1 capful daily for constipation as needed. Increase the fiber and water in your diet. Return to emergency for worsening of symptoms or any medical concerns. Problem Qualifiers
[2017-04-22 22:19] LABS: ALKALINE PHOSPHATASE 96 U/L (45-117); ALT/SGPT 19 U/L (12-78); AST/SGOT 20 U/L (15-37); BLOOD UREA NITROGEN 6 mg/dl (7-18); CARBON DIOXIDE 25 mmol/L (21-32); CHLORIDE 108 mmol/L (98-107); CREATININE 0.94 mg/dl (0.60-1.20); GLUCOSE 85 mg/dl (70-99); POTASSIUM 3.9 mmol/L (3.5-5.1); SODIUM 142 mmol/L (136-145)
[2017-04-22 22:44] VITALS: BP 106/64; PULSE 68; O2SAT 98
--- NOTE | 2017-04-22 22:47 | DIAGNOSTIC IMAGING REPORT ---
CT pelvis PELVIS W/IV CONT ONLY (CT) CLINICAL HISTORY: Paravertebral abscess. Hemorrhoidectomy. TECHNIQUE: Transaxial acquisition with multi axial reformatted images COMPARISON STUDY: 01/15/2017. FINDINGS: Bowel pattern is nonobstructive within the pelvis. Bladder is midline. There is no evidence for abscess or collection. Perirectal fascial planes appear unremarkable. No significant infiltrative changes of the surrounding fat or fascial planes is present. IMPRESSION: No acute process of the pelvis. Study is specifically negative for abscess or collection. Electronically signed by: Jacob Contreras M.D. 04/22/2017 10:46 PM Dictated Date/Time: 04/22/2017 10:42 PM
[2017-04-22] MEDS ORDERED: HYDROCORTISONE ACETATE 25 MG SUPP PR STA (22:58)
[2017-04-22] MEDS ORDERED: HYDR25SU20 PR (23:01)
--- NOTE | 2017-04-22 23:05 | DIAGNOSTIC IMAGING REPORT ---
KUB CLINICAL HISTORY: CONSTIPATION pain COMPARISON STUDY: No previous studies for comparison. FINDINGS: The soft tissues, psoas shadows, renal outlines and intestinal gas pattern appear normal. There is no evidence for bowel obstruction. No abnormal abdominal calcifications are seen. Postoperative changes low lumbar spine. Contrast within the urinary tracts prior contrast study. IMPRESSION: Nonobstructive bowel pattern. No evidence for fecal impaction. Electronically signed by: Jacob Contreras M.D. 04/22/2017 11:04 PM Dictated Date/Time: 04/22/2017 11:03 PM
== END 2017-04-22 23:12 | disposition home or self-care (01) ==
LOC: C.EDB 20:36
DX: K62.89 Other specified diseases of anus and rectum (principal); Z98.890 Other specified postprocedural states; E03.9 Hypothyroidism, unspecified; F32.9 Major depressive disorder, single episode, unspecified; N83.209 Unspecified ovarian cyst, unspecified side; K86.1 Other chronic pancreatitis; F17.200 Nicotine dependence, unspecified, uncomplicated; Z87.828 Personal history of other (healed) physical injury and trauma; Z79.899 Other long term (current) drug therapy; Z88.8 Allergy status to other drugs, medicaments and biological substances; Z80.9 Family history of malignant neoplasm, unspecified; Z83.3 Family history of diabetes mellitus; Z83.79 Family history of other diseases of the digestive system; Z82.49 Family history of ischemic heart disease and other diseases of the circulatory system; Z84.1 Family history of disorders of kidney and ureter; Z82.0 Family history of epilepsy and other diseases of the nervous system

== ENCOUNTER 2017-11-06 17:07 | Emergency (ER) | payer OTHER ==
[~2017-11-06] VITALS: Ht 167.6 cm; Wt 60.0 kg
[~2017-11-06 17:07] MED LIST changes: -HYDR-5688 PO; -METH4PAK PO
[2017-11-06 17:09] VITALS: TEMP 36.7; Ht 167.6 cm; Wt 60.0 kg
[2017-11-06] MEDS ORDERED: KETOROLAC TROMETHAMINE 30 MG/ML VIAL IV STA (17:22)
[2017-11-06] MEDS ORDERED: ASPIRIN 81 MG CHEW PO STA (17:22)
[2017-11-06] MEDS ORDERED: SODIUM CHLORIDE 0.9% 500ML 500 ML IV STA (17:22)
--- NOTE | 2017-11-06 17:32 | EMERGENCY ROOM VISIT NOTE ---
History Report prepared by Marti: Ivonne Meza Under the Supervision of: Dr. Deep Pepe D.O. 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 Her chest pain worsens with stress and exercise. It is slightly worsened with internal and external rotation of her left upper extremity. If she goes to abductor left arm pain is extremely severe for which she can't lift it greater than 90. Pain tracks up into her left neck/jaw from this. She currently rates her pain an 8/10 in severity. She notes shortness of breath associated with the severe pain as it takes her breath away. She notes the chest pain radiates down her left arm. She notes the pain comes and goes, though this episode has been persistent since last night. She is a current smoker. She notes a history of three back surgeries. She has a history of picking at her skin. She notes that she puts bandages on in order to prevent herself from picking, which she notes has helped. Pt denies headache, change in vision, fevers, nausea, coughs, rhinorrhea , vomiting, diarrhea, pain with urination, and melena. Patient denies diabetes, hypertension, hyperlipidemia, CAD, and history of sudden at a young age. Patient denies swelling of calves, recent trips, history of immobilization or recent surgery, prior history of DVT, hemoptysis, history of malignancy, or control/estrogen use. 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 She denies any changes in vision. Review of Systems See HPI for pertinent positives & negatives. A total of 10 systems reviewed and were otherwise negative. Past Medical & Surgical Medical Problems: (1) Abdominal pain (2) Abdominal pain, left lower quadrant (3) Acute Pancreatitis, Unspecified (4) Contusion of hand, left (5) Hiatal hernia (6) Hypothyroidism (7) Hypothyroidism, Unspecified (8) Injury of right knee (9) Joint pain (10) Lower extremity edema (11) Major Depressive Disorder, Single Episode, Unspecified (12) Nicotine Dependence, Cigarettes, Uncomplicated (13) Ovarian cyst Surgical Problems: (1) History of appendectomy (2) History of back surgery Family History Cancer Diabetes mellitus FHx: gallbladder disease Heart disease Hypertension Kidney disease Kidney stones Lung disease Seizures Social History Smoking Status: Current Every Day Smoker Alcohol Use: none Drug Use: none Marital Status: in relationship Housing Status: lives with family Occupation Status: unemployed Current/Historical Medications Scheduled Amitriptyline HCl (Amitriptyline HCl), 25 MG PO HS Bupropion (Wellbutrin-Xl), 300 MG PO DAILY Levothyroxine Sodium (Levothyroxine Sodium), 175 MCG PO DAILY Quetiapine Fumarate (Seroquel), 100 MG PO HS Allergies Coded Allergies: Fentanyl (Unverified Allergy, Severe, THROAT SWELLING, 04/22/17) Physical Exam Vital Signs Date Time Temp Pulse Resp B/P (MAP) Pulse Ox O2 Delivery O2 Flow Rate FiO2 11/06/17 19:15 86 16 122/88 97 Room Air 11/06/17 17:55 89 11/06/17 17:52 99 Room Air 11/06/17 17:09 36.7 99 16 109/69 99 Physical Exam GENERAL: Sitting up in bed, alert, disheveled appearing, well nourished, no distress, non-toxic. Older appearing, than stated age. EYE EXAM: normal conjunctiva. OROPHARYNX: no exudate, no erythema, lips, buccal mucosa, and tongue normal and mucous membranes are moist NECK: supple, no nuchal rigidity, no adenopathy, non-tender LUNGS: Clear to auscultation. Normal chest wall mechanics HEART: no murmurs, S1 normal and S2 normal CHEST: Reproducible left anterior chest wall pain. Worsens with abduction of left upper extremity and radiates up and through left trapezius upon palpation. ABDOMEN: abdomen soft, non-tender, normo-active bowel sounds, no masses, no rebound or guarding. BACK: Back is symmetrical on inspection and there is no deformity, no midline tenderness, no CVA tenderness. SKIN: no rashes and no bruising UPPER EXTREMITIES: upper extremities are grossly normal. Radial pulses are equal and bilateral. LOWER EXTREMITIES: No pitting edema. Calves are equal and bilateral. NEURO EXAM: Normal sensorium, cranial nerves II-XII grossly intact, normal speech, no gross weakness of arms, no gross weakness of legs. Medical Decision & Procedures ER Provider Diagnostic Interpretation: Radiology results as stated below per my review and the radiologist's interpretation: CHEST ONE VIEW PORTABLE CLINICAL HISTORY: 37 years-old Female presenting with Chest Pain. TECHNIQUE: Portable upright AP view of the chest was obtained. COMPARISON: 11/21/2016. FINDINGS: Cardiomediastinal silhouette normal. Lungs and pleural spaces clear. Osseous structures normal. Upper abdomen normal. IMPRESSION: 1. No acute cardiopulmonary disease. Electronically signed by: Philippe Rothman M.D. 11/06/2017 5:44 PM Dictated Date/Time: 11/06/2017 5:43 PM Laboratory Results 11/06/17 17:32 Red Blood Count 4.53, Mean Corpuscular Volume 93.6, Mean Corpuscular Hemoglobin 31.3, Mean Corpuscular Hemoglobin Concent 33.5, Mean Platelet Volume 9.2, Neutrophils (%) (Auto) 53.3, Lymphocytes (%) (Auto) 40.8, Monocytes (%) (Auto) 3.5, Eosinophils (%) (Auto) 1.6, Basophils (%) (Auto) 0.7, Neutrophils # (Auto) 3.63, Lymphocytes # (Auto) 2.78, Monocytes # (Auto) 0.24, Eosinophils # (Auto) 0.11, Basophils # (Auto) 0.05 11/06/17 17:32 Test 11/06/17 17:32 White Blood Count 6.82 K/uL (4.8-10.8) Red Blood Count 4.53 M/uL (4.2-5.4) Hemoglobin 14.2 g/dL (12.0-16.0) Hematocrit 42.4 % (37-47) Mean Corpuscular Volume 93.6 fL (80-100) Mean Corpuscular Hemoglobin 31.3 pg (25-34) Mean Corpuscular Hemoglobin Concent 33.5 g/dl (32-36) Platelet Count 336 K/uL (130-400) Mean Platelet Volume 9.2 fL (7.4-10.4) Neutrophils (%) (Auto) 53.3 % Lymphocytes (%) (Auto) 40.8 % Monocytes (%) (Auto) 3.5 % Eosinophils (%) (Auto) 1.6 % Basophils (%) (Auto) 0.7 % Neutrophils # (Auto) 3.63 K/uL (1.4-6.5) Lymphocytes # (Auto) 2.78 K/uL (1.2-3.4) Monocytes # (Auto) 0.24 K/uL (0.11-0.59) Eosinophils # (Auto) 0.11 K/uL (0-0.5) Basophils # (Auto) 0.05 K/uL (0-0.2) RDW Standard Deviation 45.7 fL (36.4-46.3) RDW Coefficient of Variation 13.4 % (11.5-14.5) Immature Granulocyte % (Auto) 0.1 % Immature Granulocyte # (Auto) 0.01 K/uL (0.00-0.02) D-Dimer 370 ug/L FEU (0-500) Anion Gap 2.0 mmol/L (3-11) Est Creatinine Clear Calc Drug Dose 76.7 ml/min Estimated GFR () 89.8 Estimated GFR (Non- 77.5 BUN/Creatinine Ratio 8.0 (10-20) Calcium Level 9.0 mg/dl (8.5-10.1) Total Creatine Kinase 76 U/L (26-192) Creatine Kinase MB 1.0 ng/ml (0.5-3.6) Creatine Kinase MB Ratio 1.3 (0-3.0) Troponin I < 0.015 ng/ml (0-0.045) Laboratory results per my review. Medications Administered Medications (Trade) Dose Ordered Sig/Lulu Route Start Time Stop Time Status Last Admin Dose Admin Sodium Chloride 500 ml @ 999 mls/hr Q31M STAT IV 11/06/17 17:22 11/06/17 17:52 DC 11/06/17 17:50 999 MLS/HR Aspirin (Aspirin Chew) 324 mg NOW STAT PO 11/06/17 17:22 11/06/17 17:24 DC 11/06/17 17:45 324 MG Ketorolac Tromethamine (Toradol Inj) 30 mg NOW STAT IV 11/06/17 17:22 11/06/17 17:24 DC 11/06/17 17:44 30 MG ECG Indication: chest pain Rate (beats per minute): 84 Rhythm: sinus rhythm Findings: no ectopy, other (Normal axis. Flipped T wave in V3.) Change: no significant change (When compared to ) ED Course ED COURSE: Vital signs were reviewed and showed normal. The patients medical record was reviewed The above diagnostic studies were performed and reviewed. ED treatments and interventions as stated above. 1713: The patient was evaluated in room B6. A complete history and physical examination was performed. 1722: Ordered Toradol 30 mg IV, Aspirin 324 mg PO, and Sodium Chloride 500 ml @ 999 mls/hr IV. 1750: I reassessed the patient at this time. She is resting comfortably. 1815: I reassessed the patient at this time. She is resting comfortably. 1845: Upon reevaluation, the patient is feeling better and resting comfortably. I discussed my findings with the patient and she understands and agrees with the treatment plan. Based on the patients age, coexisting illnesses, exam and lab findings the decision to treat as an outpatient was made. The patient remained stable while under my care. The patient appeared well at the time of discharge. Medical Decision Differential diagnoses includes but is not limited to acute coronary syndrome, myocardial infarction, pericarditis, pulmonary embolus, aortic dissection, pneumonia, pneumothorax, musculoskeletal, shingles, esophageal. Patient is a 37-year-old female with a past medical history of being a smoker and early family heart disease that presents to ER for left-sided chest pain. She was seen at [facility] in early September for the same complaint. She was admitted eventually left [place]. He compared the EKG to that admission and was unchanged. Troponin was negative with pain that has been present since 11 PM last night. Her pain is clearly reproducible along the left chest wall to the point that she can't lift her left arm above 90 without having significant pain. This sharpness of the pain gets or shortness of breath. Pain does radiate down her arm and up the left side of her neck and is reproducible there is well. CBC along with BMP, and troponin was negative. D-dimer was negative. Chest x-ray was unremarkable. Patient was updated bedside. She is given Toradol and had improvement of her pain. She was discharged with muscle skeletal left chest wall pain. Discussed with Pt concerning signs and symptoms to watch out for. Pt was instructed to follow up with their PCP and discussed with the patient their option to return to the ED at anytime for persistent or worsening symptoms. The appropriate anticipatory guidance and out-patient management, including indications for return to the emergency department, were explained at length to the patient and understood. Medication Reconcilliation Current Medication List: was personally reviewed by me Blood Pressure Screening Patient's blood pressure: Normal blood pressure Impression Primary Impression: Chest pain, musculoskeletal Scribe Attestation The scribe's documentation has been prepared under my direction and personally reviewed by me in its entirety. I confirm that the note above accurately reflects all work, treatment, procedures, and medical decision making performed by me. Departure Information Dispostion Home / Self-Care Referrals Abrahan Granado PA-C (PCP) Forms Call Back Authorization, HOME CARE DOCUMENTATION FORM, IMPORTANT VISIT INFORMATION Patient Instructions Chest Pain - [facility], [facility] Additional Instructions Please follow up with your primary care doctor with in the next 24 hours. Any worsening of your symptoms, please return to the ED immediately. This includes any fevers greater than 100.4, worsening pain, chest pain, shortness breath, persistent nausea, vomiting, unable to eat or drink, or any other concerning signs or symptoms from your standpoint. Please take Motrin or Tylenol as needed for pain.
--- NOTE | 2017-11-06 17:45 | DIAGNOSTIC IMAGING REPORT ---
CHEST ONE VIEW PORTABLE CLINICAL HISTORY: 37 years-old Female presenting with Chest Pain. TECHNIQUE: Portable upright AP view of the chest was obtained. COMPARISON: 11/21/2016. FINDINGS: Cardiomediastinal silhouette normal. Lungs and pleural spaces clear. Osseous structures normal. Upper abdomen normal. IMPRESSION: 1. No acute cardiopulmonary disease. Electronically signed by: Philippe Rothman M.D. 11/06/2017 5:44 PM Dictated Date/Time: 11/06/2017 5:43 PM
[2017-11-06 17:46] LABS: BASO % 0.7 %; BASO ABS # 0.05 K/uL (0-0.2); EOS % 1.6 %; EOS ABS # 0.11 K/uL (0-0.5); HEMATOCRIT 42.4 % (37-47); HEMOGLOBIN 14.2 g/dL (12.0-16.0); IG# 0.01 K/uL (0.00-0.02); LYMPH % 40.8 %; LYMPH ABS # 2.78 K/uL (1.2-3.4); MEAN CELL VOLUME 93.6 fL (80-100); MEAN CORPUSCULAR HEMOGLOBIN 31.3 pg (25-34); MEAN CORPUSCULAR HGB CONC 33.5 g/dl (32-36); MEAN PLATELET VOLUME 9.2 fL (7.4-10.4); MONO % 3.5 %; MONO ABS # 0.24 K/uL (0.11-0.59); NEUT % 53.3 %; NEUT ABS # 3.63 K/uL (1.4-6.5); PLATELET COUNT 336 K/uL (130-400); RED CELL DISTRIBUTION WIDTH CV 13.4 % (11.5-14.5); RED CELL DISTRIBUTION WIDTH SD 45.7 fL (36.4-46.3); WHITE BLOOD COUNT 6.82 K/uL (4.8-10.8)
[2017-11-06] MEDS ORDERED: QUET1TAB34 PO (17:48)
[2017-11-06] MEDS ORDERED: AMT25 PO (17:48)
[2017-11-06 17:52] VITALS: O2SAT 99
[2017-11-06 18:04] LABS: BLOOD UREA NITROGEN 7 mg/dl (7-18); CARBON DIOXIDE 30 mmol/L (21-32); CREATININE 0.94 mg/dl (0.60-1.20); GLUCOSE 62 mg/dl (70-99); POTASSIUM 3.4 mmol/L (3.5-5.1); SODIUM 135 mmol/L (136-145)
[2017-11-06 19:15] VITALS: BP 122/88; PULSE 86; O2SAT 97
[2018-02-28] MEDS ORDERED: HYDR-3124 PO (02:04)
[2018-02-28] MEDS ORDERED: SULF800T23 PO (06:30)
[2018-02-28] MEDS ORDERED: CEPH500C PO (06:30)
== END 2017-11-06 19:22 | disposition home or self-care (01) ==
LOC: C.EDB 17:08
DX: R07.89 Other chest pain (principal); E03.9 Hypothyroidism, unspecified; F32.9 Major depressive disorder, single episode, unspecified; F17.210 Nicotine dependence, cigarettes, uncomplicated; Z90.89 Acquired absence of other organs; Z98.890 Other specified postprocedural states; Z83.3 Family history of diabetes mellitus; Z82.49 Family history of ischemic heart disease and other diseases of the circulatory system; Z84.1 Family history of disorders of kidney and ureter; Z82.0 Family history of epilepsy and other diseases of the nervous system; Z79.899 Other long term (current) drug therapy